=== PATIENT | female | born 1955 | race Caucasian/White ===

== ENCOUNTER 2016-10-01 05:08 | Inpatient (IN) | payer BC ==
[2016-09-15 11:06] VITALS: BMI 36.0
--- NOTE | 2016-09-15 11:44 | PAT Medication Instructions ---
Service Date Sep 15, 2016. Current Home Medication List Albuterol Sulfate (Proair Respiclick), 2 PUFFS INH Q4-6H Cholecalciferol (Vitamin D3), 1 CAP PO QAM Escitalopram Oxalate (Lexapro), 20 MG PO QPM Hydrocodone/Acetaminophen 5MG/325MG ([place] 5MG/325MG), 1-2 TAB PO Q4-6H PRN for Pain Lorazepam (Ativan), 0.5 MG PO TID PRN for PRN Montelukast Sodium (Singulair), 10 MG PO QPM Pantoprazole (Protonix), 40 MG PO QAM [Advair], 2 PUFFS INH BID Medication Instructions For Your Scheduled Surgery Patient to complete Levaquin 500mg QAM ~09/18/16. - Hold the following medications the morning of surgery: Cholecalciferol (Vitamin D3), 1 CAP PO QAM - Take the following medications the morning of surgery with a sip of water: [Advair], 2 PUFFS INH BID Pantoprazole (Protonix), 40 MG PO QAM Lorazepam (Ativan), 0.5 MG PO TID PRN for PRN (if needed) Hydrocodone/Acetaminophen 5MG/325MG ([place] 5MG/325MG), 1-2 TAB PO Q4-6H PRN for Pain (okay to take up to 4 hours prior to surgery if needed) Albuterol Sulfate (Proair Respiclick), 2 PUFFS INH Q4-6H (bring with you to hospital morning of surgery; use if needed) - Take the following medications as scheduled the night before surgery: [Advair], 2 PUFFS INH BID Montelukast Sodium (Singulair), 10 MG PO QPM Lorazepam (Ativan), 0.5 MG PO TID PRN for PRN (if needed) Hydrocodone/Acetaminophen 5MG/325MG ([place] 5MG/325MG), 1-2 TAB PO Q4-6H PRN for Pain (if needed) Escitalopram Oxalate (Lexapro), 20 MG PO QPM Albuterol Sulfate (Proair Respiclick), 2 PUFFS INH Q4-6H (if needed) If you have any questions please call us at [phone] or [phone] or [phone]
[2016-09-15 12:17] LABS: MANUAL MICROSCOPIC REQUIRED? NO; REVIEW REQ? NO; URINE APPEARANCE CLEAR (CLEAR); URINE BILIRUBIN NEG (NEG); URINE COLOR YELLOW; URINE NITRITE NEG (NEG); URINE PH 6.5 (4.5-7.5); URINE SPECIFIC GRAVITY 1.014 (1.000-1.030); UROBILINOGEN NEG (NEG)
--- NOTE | 2016-09-15 12:21 | DIAGNOSTIC IMAGING REPORT ---
CHEST PREADMISSION(PA/LAT) CLINICAL HISTORY: Preoperative chest COMPARISON STUDY: No previous studies for comparison. FINDINGS: The cardiac and mediastinal contours are normal. There is no evidence of focal pulmonary consolidation. There is no evidence of failure. No pleural effusions are visualized.[ There are minimal linear atelectatic changes at the left lung base. IMPRESSION: No active disease in the chest. Electronically signed by: Hakeem Mancia M.D. 09/15/2016 12:20 PM Dictated Date/Time: 09/15/2016 12:19 PM
[2016-09-15 12:26] LABS: INR 0.9 (0.9-1.1); PARTIAL THROMBOPLASTIN RATIO 0.9
[2016-09-15 13:00] LABS: ESTIMATED AVERAGE GLUCOSE 128 mg/dl; HA1C FLAG Normal (Normal)
--- NOTE | 2016-09-27 10:05 | HISTORY & PHYSICAL EXAMINATION ---
DATE OF ADMISSION: 10/01/2016 CHIEF COMPLAINT: Right knee pain. HISTORY OF PRESENT ILLNESS: The patient is a 61-year-old female, who presents with right knee pain. She states that the symptoms have been chronic and nontraumatic. She denies any injuries. The pain is described as aching, sharp and throbbing. She has difficulty performing her activities of daily living. She has failed with cortisone injections, nonsteroidal anti-inflammatories and physical therapy. She does like to proceed with a right total knee arthroplasty. PAST MEDICAL HISTORY: Significant for asthma, COPD, anxiety, shortness of breath with walking, osteoarthritis, GERD and hiatal hernia. PAST SURGICAL HISTORY: Cholecystectomy, appendectomy, right knee meniscal repair, lithotripsy, hysterectomy. SOCIAL HISTORY: She drinks alcohol socially, smokes 1-2 cigarettes a day. Denies IV or illegal drug use. She lives in a [address] house. 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 FAMILY HISTORY: Father has a history of stroke. ALLERGIES: TO PENICILLIN AND MOBIC. MEDICATIONS: 1. Lorazepam 0.5 mg p.r.n. 2. Singular 10 mg daily. 3. Nexium 40 mg daily. 4. Lexapro 20 mg daily. 5. Albuterol p.r.n. 6. Advair 230/21 mcg two puffs twice a day. 7. [place] 5-325 mg one to two tablets every 4-6 hours as needed for pain. REVIEW OF SYSTEMS: She denies headaches, fevers, chills, double vision, blurry vision, sore throat, cough, chest pain, nausea, vomiting, diarrhea, constipation, numbness, tingling, tired, difficulties going to the bathroom, thoughts to harm herself or harm others or depression. She is positive for joint pain and joint stiffness of the right knee. OBJECTIVE: GENERAL APPEARANCE: The patient is a 61-year-old female, sitting in no acute distress. She is well-dressed, well-nourished. She is awake, alert and oriented x3. VITAL SIGNS: She is 5 feet 5 inches tall, 215 pounds, blood pressure 110/68. HEENT: Extraocular movements are intact. PERRLA. Mucosa was moist. No septal deviation. NECK: Supple with no lymphadenopathy, no JVD, no thyromegaly. HEART: Regular rate and rhythm with no murmurs or gallops. LUNGS: Has mild wheezing and is diffuse throughout all lung areas. ABDOMEN: Soft, nontender, nondistended. Normal bowel sounds, no hepatosplenomegaly. EXTREMITIES: Paying particular attention to the right lower extremity, she is able to actively extend to 0 degrees and flex to 100 degrees. She has diffuse tenderness more so to the medial joint line. Ligaments are intact. NEUROLOGIC: Cranial nerves II-XII were intact. Pulses were compared bilaterally and were equal. IMAGING: X-rays of the right knee show a collapsed fragment of the lateral femoral condyle consistent with AVN. 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 PLAN: The patient is scheduled for a right total knee arthroplasty. She has had MRIs and x-rays that have demonstrated a subchondral collapse of the lateral femoral condyle with mild impaction of the articular surface about 2 mm that is consistent with spontaneous osteonecrosis. She has failed conservative therapies of cortisone injections, visco injections, nonsteroidal anti-inflammatories and physical therapy. Given the preexisting osteoarthritic change in the patellofemoral joint and collapse of the bone, it was discussed with the patient and are in agreement, is best served with a total knee arthroplasty. She will be scheduled for a right total knee arthroplasty. Risks and benefits were discussed with the patient and included, but not limited to infection, DVT, pain, stiffness, need for revision surgeries, damage to blood vessels, damage to nerves, PE, and anesthesia risks were all discussed with the patient and she wishes to proceed. All questions were answered to her satisfaction. DVT prophylaxis will be aspirin 81 mg twice a day. Discharge will be home with outpatient physical therapy. CELESTE
[2016-10-01] VITALS (7 sets, daily range): BP systolic 106–132; BP diastolic 59–80; PULSE 78–101; TEMP 36.9–37.3; O2SAT 94–96; Ht 165.1 cm; Wt 98.5 kg
[~2016-10-01] VITALS: Ht 165.1 cm; Wt 98.5 kg
[~2016-10-01 05:08] MED LIST: ADVAIR INH; ALBU18002 INH; CHOL2000 PO; ESCI1TAB10 PO; HYDR-5688 PO; LEVO-366 PO; LORA-741 PO; MONT1TAB3 PO; PANT40TA PO
[2016-10-01] MEDS ORDERED: ROPIVACAINE 5MG/ML 30 ML 150 MG, BUPIVACAINE/EPINEPHR 0.5% MPF 30 ML, KETOROLAC TROMETH... INFIL SCH ×7 (06:00)
[2016-10-01] MEDS ORDERED: METOCLOPRAMIDE HCL 10 MG TAB PO SCH (06:00)
[2016-10-01] MEDS ORDERED: ACETAMINOPHEN 500 MG TAB PO SCH (06:00)
[2016-10-01] MEDS ORDERED: LACTATED RINGER'S 1000ML 500 ML IV ONE (06:00)
[2016-10-01] MEDS ORDERED: CLINDAMYCIN 600 MG/54 ML D5W IV SCH (06:00)
[2016-10-01] MEDS ORDERED: GABAPENTIN 300 MG CAP PO SCH (06:00)
[2016-10-01] MEDS ORDERED: CeleBREX 200 MG CAP PO SCH (06:00)
[2016-10-01] MEDS ORDERED: LACTATED RINGER'S 1000ML 1,000 ML IV SCH ×2 (06:00)
[2016-10-01] MEDS ORDERED: DEXAMETHASONE 4 MG TAB PO SCH (06:00)
[2016-10-01] MEDS ORDERED: FAMOTIDINE 20 MG TAB PO SCH (06:00)
[2016-10-01] MEDS ORDERED: BUPIVACAINE/EPINEPHRINE 0.25% 1:200,000 30 ML VIAL ONE (06:35)
[2016-10-01] MEDS ORDERED: DEXAMETHASONE SOD INJ 4 MG/ML VIAL ONE (06:35)
[2016-10-01] MEDS ORDERED: BACITRACIN 50000 UNIT VIAL ONE (06:58)
[2016-10-01] MEDS ORDERED: POVIDONE-IODINE OP SOLN 30 ML BTL ONE (06:58)
[2016-10-01] MEDS ORDERED: ORTHO JOINT ANESTHETIC ONE (06:58)
--- NOTE | 2016-10-01 07:00 | History & Physical Bridge Note ---
H&P Re-Evaluation Bridge Note: I have examined the patient, reviewed the History & Physical and in the interval since the performance of the History & Physical I have noted the following changes of clinical significance: No changes noted
[2016-10-01] MEDS ORDERED: EpHEDrine SULFATE INJ 50 MG/ML AMP IV PRN (07:30)
[2016-10-01] MEDS ORDERED: ATROPINE SULFATE 0.1 MG/ML 5ML SYR IV PRN (07:30)
[2016-10-01] MEDS ORDERED: FENTANYL CITRATE INJ 50 MCG/1 ML 2 ML VIAL IV PRN (07:30)
[2016-10-01] MEDS ORDERED: ONDANSETRON INJ 2 MG/ML 2 ML VIAL IV PRN ×2 (07:30→09:00)
--- NOTE | 2016-10-01 08:45 | [facility] Post Operative Brief Note ---
Immediate Operative Summary Operative Date Oct 01, 2016. Pre-Operative Diagnosis Right Knee Degenerative Joint Disease with Osteonecrosis of the Lateral Femoral Condyle Post-Operative Diagnosis Right Knee Degenerative Joint Disease with Osteonecrosis of the Lateral Femoral Condyle Procedure(s) Performed Right Total Knee Arthroplasty Surgeon Dr. Pastrana Paralegal Assistant Surgeon(s) ALICJA Juarez Estimated Blood Loss 20 ml Findings above Specimens A. Right Knee Bone and Tissue Drains hemovac Anesthesia spinal Complication(s) None Disposition Recovery Room / PACU
[2016-10-01] MEDS ORDERED: PANTOprazole SOD 40 MG TAB PO SCH (09:00)
[2016-10-01] MEDS ORDERED: LORAZEPAM 0.5 MG TAB PO PRN (09:00)
[2016-10-01] MEDS ORDERED: ZOLPIDEM TARTRATE 5 MG TAB PO PRN (09:00)
[2016-10-01] MEDS ORDERED: MoRPHine SULFATE 2 MG/ML CARP IV PRN (09:00)
[2016-10-01] MEDS ORDERED: MAGNESIUM HYDROXIDE SUSP 30 ML UDC PO PRN (09:00)
[2016-10-01] MEDS ORDERED: ALUMINUM/MAGNESIUM/SIMETH (MAALOX MAX) 30 ML UDC PO PRN (09:00)
--- NOTE | 2016-10-01 09:32 | OPERATIVE REPORT ---
DATE OF OPERATION: 10/01/2016 PREOPERATIVE DIAGNOSES: Right knee osteonecrosis, right lateral femoral condyle and degenerative joint disease, right knee. POSTOPERATIVE DIAGNOSES: Same. PROCEDURE: Right total knee arthroplasty. SURGEON: Dr. Montez Pastrana. EQUIPMENT MANAGER: Simon Tom PA-C, who was necessary for assistance of procedure with positioning, prepping, draping, retraction and closure. ANESTHESIA: Spinal with adductor canal block. SPECIMEN: Bone and tissue. IMPLANTS: [employer] Journey version 2, femur 4, tibia 4, poly 9, and patella 29 oval. DRAINS: One medium Hemovac. COMPLICATIONS: None. ESTIMATED BLOOD LOSS: 20 mL. INDICATIONS: The patient is a 61-year-old female with progressive right knee pain. 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 She had some chondral collapse of the bone in this region. Failing conservative measures, she wished to proceed with the right total knee arthroplasty. She also had degenerative changes, particularly in the patellofemoral joint. So, I recommended a total knee replacement. The risks, benefits, and alternatives of surgery including, but not limited to infection, DVT, pain, stiffness, need for revision surgery, failure to relieve all symptoms, damage to blood vessels, damage to nerves, and risks of anesthesia were discussed with patient and she wished to proceed. DESCRIPTION OF PROCEDURE: The patient was identified, laterality was confirmed and marked. She received a preoperative antibiotic as well as a spinal and adductor canal block. A well-padded tourniquet was placed on the thigh and limb was prepped and draped in the usual sterile manner with ChloraPrep. Limb was exsanguinated and tourniquet was inflated. I made a longitudinal incision in the anterior aspect of the knee, sharply incising the skin utilizing Bovie electrocautery to achieve hemostasis. I made a medial parapatellar arthrotomy and mobilized the patella laterally. I removed the patellar fat pad and the anterior horns of the lateral and medial meniscus. I then pinned into place my patient matched distal femoral cutting guide. The region of her lateral condyle region had unstable fragment that was displaced upon flexing the knee and underlying necrotic bone. We made a distal femoral resection. We were able to get back into healthy bone on the region of the lateral femoral condyle. I pinned into place a 5-in-1 size-4 femoral cutting guide and made my anterior, posterior and chamfer cuts. I then removed the remaining portions of the meniscus and the cruciates. I then pinned in place the patient matched tibial cutting guide, made my tibial resection and then sized and pinned a size-[address], cutting for the post. I removed the posterior osteophytes off the femur and then, pinned into place the trial femoral component and reamed for the trochlea. I placed the trochlea into position. I then trialed a 9-mm poly and had good range of motion, good soft tissue balancing and tensioning with a 9-mm poly. I then prepared the patella with a freehand cut and then sized and drilled for a 29 oval patella. We had good tracking to the patella and no lateral release was needed. All the trial components were removed. Wound was thoroughly irrigated. Deep tissues were anesthetized with an ortho mix solution and then with Simplex HV with gent cement. I cemented the definitive components. This was a Romano [employer]hew Journey version 2, femur 4, tibia 4, poly 9, and patella 29 oval. Deep drain was placed. The arthrotomy was then closed with interrupted #1 Vicryl sutures, subcutaneous tissue with interrupted 2-0 Vicryl suture and skin with silas. Sterile dressing was applied. All needle and sponge counts were correct at the end of the procedure. The patient was transferred to the PACU in stable condition without apparent complication. I attest to the content of the Intraoperative Record and any orders documented therein. Any exception s are noted below.
--- NOTE | 2016-10-01 10:25 | Anesthesiology Progress Note ---
Anesthesia Post Op Note Date & Time Oct 01, 2016 at 10:25 Vital Signs Pain Intensity: 0 Vital Signs Past 12 Hours Date Time Temp Pulse Resp B/P (MAP) Pulse Ox O2 Delivery O2 Flow Rate FiO2 10/01/16 10:15 79 17 104/75 95 Nasal Cannula 2 10/01/16 10:05 79 12 120/78 94 Nasal Cannula 2 10/01/16 09:55 81 11 133/85 95 Nasal Cannula 2 10/01/16 09:45 82 13 98/71 97 Nasal Cannula 2 10/01/16 09:35 82 19 103/65 99 Mask 10 10/01/16 09:25 88 12 103/47 99 Mask 10 10/01/16 09:19 36.1 86 16 101/76 96 Mask 10 10/01/16 06:02 37.1 82 18 111/74 95 Room Air Notes Mental Status: alert / awake / arousable, participated in evaluation Pt Amnestic to Procedure: Yes Nausea / Vomiting: adequately controlled Pain: adequately controlled Airway Patency, RR, SpO2: stable & adequate BP & HR: stable & adequate Hydration State: stable & adequate Neuraxial Anesthesia: was administered, sensory block is resolving Anesthetic Complications: no major complications apparent
--- NOTE | 2016-10-01 10:41 | DIAGNOSTIC IMAGING REPORT ---
RIGHT KNEE 1 OR 2 VIEWS ROUTINE CLINICAL HISTORY: Degenerative arthritis. POSTOP STUDY COMPARISON: None. DISCUSSION: There are postsurgical changes of a total right knee arthroplasty and patellar resurfacing. The femoral and tibial components appear well seated. Overlying skin silas and surgical drains are evident. There is air within the soft tissues consistent with recent surgery. IMPRESSION: Postsurgical changes of a total right knee arthroplasty. Electronically signed by: Hakeem Mancia M.D. 10/01/2016 10:39 AM Dictated Date/Time: 10/01/2016 10:39 AM
[2016-10-01] MEDS: TRANEXAMIC ACID INJ 1,000 MG in SODIUM CHLORIDE 0.9% 100ML 100 ML IV SCH (10:51)
[2016-10-01] MEDS: DOCUSATE SODIUM 100 MG CAP PO SCH ×2 (11:46→21:19)
[2016-10-01] MEDS: MULTIVITAMIN TAB PO SCH (11:46)
[2016-10-01] MEDS: PANTOprazole SOD 40 MG TAB PO SCH (11:47)
[2016-10-01] MEDS: CHOLECALCIFEROL 1000 INTER.UNIT TAB PO SCH (11:47)
[2016-10-01] MEDS: FERROUS GLUCONATE 324 MG TAB PO SCH ×2 (12:52→18:13)
[2016-10-01] MEDS: ALBUTEROL HFA INHALER 8.5 GM INH SCH ×3 (12:52→19:41)
[2016-10-01] MEDS: D5W AND 1/2NSS + 20MEQ KCL 1,000 ML IV SCH ×2 (12:53→21:57)
[2016-10-01] MEDS: ACETAMINOPHEN 500 MG TAB PO SCH ×2 (13:39→21:57)
[2016-10-01] MEDS: CLINDAMYCIN IV 600 MG in DEXTROSE 5% 50ML 50 ML IV SCH (15:35)
[2016-10-01] MEDS: OXYCODONE HCL IR 5 MG TAB (IMMEDIATE RELEASE) PO PRN ×2 (15:49→19:42)
--- NOTE | 2016-10-01 20:46 | Discharge Instructions ---
Discharge Instructions Date of Service Oct 01, 2016. Admission Reason for Admission: Unilateral Primary Osteoarthritis, Right Knee Discharge Discharge Diagnosis / Problem: S/P Right TKA Discharge Goals Goal(s): Decrease discomfort, Improve function Activity Recommendations Activity Limitations: per Instructions/Follow-up section . Instructions / Follow-Up Instructions / Follow-Up ACTIVITY RECOMMENDATIONS: SELF CARE INSTRUCTIONS AFTER TOTAL KNEE REPLACEMENT A. You may need to continue a physical therapy program after discharge from the hospital. There are several options available to you. Your doctor will assist you in selecting the best one for you. 1. An out-patient facility 2 to 3 times a week for therapy or home therapy. 2. Continue working on all exercises taught to you in the hospital. Your goals should be to increase bending of your knee to 90 degrees and beyond and to fully straighten your knee. B. You may progress at your own pace from walking with a walker or crutches to a cane; then to no assistive devices. C. Make walking a part of your daily routine. Be up as much as comfortable with rest periods throughout the day. Rest with leg elevation is very important. Use the ice wrap frequently for the first 3-4 weeks. D. There are no restrictions on activities. 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 E. Wear the long elastic stockings (CELY hose) 20 hours a day for 2 weeks after surgery. They can be removed several times a day for laundering and for a bath. F. You may shower, no tub baths until cleared by your doctor. G. YOU WILL HAVE A SILVERLON DRESSING ON. IT CAN BE REMOVED IN 7 DAYS. YOU MAY THEN APPLY DRY DRESSINGS. SPECIAL CARE INSTRUCTIONS: VERY IMPORTANT TO READ AND REVIEW A. There are a few signs you need to watch for after you are home. Call [facility] if you notice any of the followin. Increased severe knee pain. Some pain is expected especially when you exercise. 2. Increased swelling in your leg or knee; pain or swelling of the calf muscle in either lower leg. 3. Any fluid drainage from the incision. 4. Shortness of breath or chest pain. B. Please call [facility] at if you have any concerns or questions about your operation or recovery. The doctor or his nurse will return your call promptly. C. You must take antibiotics before dental work, bladder, bowel or other surgery. Your doctor will provide you with a permanent care to carry describing this precaution. IMPORTANT: * REMEMBER TO TAKE ASPIRIN, 81 MG, TWICE DAILY FOR 4 WEEKS UNLESS OTHERWISE DIRECTED. THIS IS YOUR BLOOD THINNER. * HIGH RISK PATIENTS MAY BE PRESCRIBED A STRONGER BLOOD THINNER. THIS WILL BE PROVIDED AT DISCHARGE. * CALL IF INCREASED PAIN, REDNESS, DRAINAGE OR FEVER GREATER THAT 101. * WEAR CELY HOSE 20 HOURS PER DAY FOR 2 WEEKS. * YOU MAY HAVE A LARGE BAND-AID LIKE DRESSING (SILVERON). THIS WILL REMAIN ON YOUR INCISION FOR 7 DAYS, THEN CAN BE REMOVED. IF INCISION IS LEAKING THROUGH DRESSING, CALL THE OFFICE . FOLLOW UP VISIT: If appointment is not already scheduled: Please call [facility] to make a follow-up appointment for 2 weeks after your surgery at . Current Hospital Diet Patient's current hospital diet: Regular Diet Discharge Diet Recommended Diet: Regular Diet Procedures Procedures Performed: Right Total Knee Arthroplasty Pending Studies Studies pending at discharge: no Laboratory Results Hemoglobin A1c Test 09/15/16 11:51 Range/Units Estimated Average Glucose 128 mg/dl Hemoglobin A1c 6.1 H 4.5-5.6 % Medical Emergencies . Who to Call and When: Medical Emergencies: If at any time you feel your situation is an emergency, please call [phone] immediately. . Non-Emergent Contact Non-Emergency issues call your: Surgeon Call Non-Emergent contact if: temperature is above 101.5, your pain is worsening, wound has increased drainage, wound has increased redness . "Provider Documentation" section prepared by Simon Tom. . VTE Core Measure Inpt VTE Proph given/why not?: Other Anticoagulation (aspirin 81mg BID) [place] Drug Monitoring Program Search Results: patient reviewed within database, no issues identified
[2016-10-01] MEDS: OXYCODONE HCL 10 MG TABCR (OXYCONTIN) PO SCH (21:17)
[2016-10-01] MEDS: ESCITALOPRAM OXALATE 20 MG TAB PO SCH (21:18)
[2016-10-01] MEDS: MONTELUKAST SOD 10 MG TAB PO SCH (21:18)
[2016-10-01] MEDS: ASPIRIN 81 MG ECTAB PO SCH (21:19)
[2016-10-02 00:09] VITALS: BP 92/60; PULSE 64; TEMP 36.8; O2SAT 94
[2016-10-02] MEDS: CLINDAMYCIN IV 600 MG in DEXTROSE 5% 50ML 50 ML IV SCH ×2 (00:13→07:39)
[2016-10-02] MEDS: ALBUTEROL HFA INHALER 8.5 GM INH SCH ×6 (00:14→21:22)
[2016-10-02] MEDS: OXYCODONE HCL IR 5 MG TAB (IMMEDIATE RELEASE) PO PRN ×5 (00:15→19:28)
[2016-10-02 03:45] VITALS: BP 91/51; PULSE 77; TEMP 36.7; O2SAT 94
[2016-10-02] MEDS: ACETAMINOPHEN 500 MG TAB PO SCH ×3 (05:39→21:25)
[2016-10-02 06:08] LABS: HEMATOCRIT 34.6 % (37-47); MEAN CELL VOLUME 96.6 fL (80-100); MEAN CORPUSCULAR HEMOGLOBIN 31.8 pg (25-34); MEAN CORPUSCULAR HGB CONC 32.9 g/dl (32-36); MEAN PLATELET VOLUME 11.3 fL (7.4-10.4); PLATELET COUNT 188 K/uL (130-400); RED BLOOD COUNT 3.58 M/uL (4.2-5.4); WHITE BLOOD COUNT 10.42 K/uL (4.8-10.8)
[2016-10-02 06:40] LABS: CALCIUM 9.3 mg/dl (8.5-10.1); CREATININE 1.1 mg/dl (0.60-1.20); POTASSIUM 4.8 mmol/L (3.5-5.1)
[2016-10-02 06:47] LABS: BUN/CREATININE RATIO 14.5 (10-20)
[2016-10-02 07:00] VITALS: BP 101/65; PULSE 75; TEMP 36.8; O2SAT 95
[2016-10-02] MEDS ORDERED: DEXAMETHASONE 4 MG TAB PO SCH (07:30)
[2016-10-02] MEDS: D5W AND 1/2NSS + 20MEQ KCL 1,000 ML IV SCH (07:38)
[2016-10-02] MEDS: DOCUSATE SODIUM 100 MG CAP PO SCH ×2 (08:59→21:25)
[2016-10-02] MEDS: MULTIVITAMIN TAB PO SCH (08:59)
[2016-10-02] MEDS: CHOLECALCIFEROL 1000 INTER.UNIT TAB PO SCH (09:00)
[2016-10-02] MEDS: ASPIRIN 81 MG ECTAB PO SCH ×2 (09:00→21:25)
[2016-10-02] MEDS: PANTOprazole SOD 40 MG TAB PO SCH (09:01)
[2016-10-02] MEDS: FERROUS GLUCONATE 324 MG TAB PO SCH ×3 (09:02→19:26)
[2016-10-02] MEDS: OXYCODONE HCL 10 MG TABCR (OXYCONTIN) PO SCH ×2 (09:07→21:25)
--- NOTE | 2016-10-02 11:34 | Orthopedic Progress Note ---
Orthopedic Progress Note Date of Service Oct 02, 2016. Subjective Post OP Day: 1 Reports: feeling well, pain controlled w PO medications (Pain was bad this AM but has improved with pain meds.), Denies: complaints, chest pain, SOB, nausea / vomiting, light headedness, calf pain Objective calves soft nontender, N/V intact, capillary refill less than 2 sec., dressing C /D/I, A&O x3, toes mobile, hemovac drainage (200 cc total) Date Time Temp Pulse Resp B/P (MAP) Pulse Ox O2 Delivery O2 Flow Rate FiO2 10/02/16 07:00 36.8 75 16 101/65 (77) 95 Room Air 10/02/16 03:45 36.7 77 16 91/51 (64) 94 Room Air 10/02/16 00:09 36.8 64 16 92/60 (71) 94 Room Air 10/02/16 00:03 Room Air 10/01/16 18:45 37.3 84 18 106/59 (75) 95 Room Air 10/01/16 15:40 Room Air 10/01/16 15:35 36.9 101 18 122/71 (88) 96 Room Air 10/01/16 13:00 85 16 118/80 (93) 94 Nasal Cannula 2.0 10/01/16 12:00 84 18 118/80 (93) 95 Nasal Cannula 2.0 Laboratory Results 24 Hours: Test 10/02/16 05:40 Hematocrit 34.6 % Hemoglobin 11.4 g/dL Assessment & Plan Assessment: POD #1 s/p right TKA Inhouse Planning Pain Management: Oxycontin, PO Tylenol, Oxy IR DVT Prophylaxis: CELYs, ASA Discharge Planning Discharge Planning: home Pain Management: Oxycontin, PO Tylenol, Oxy IR DVT Prophylaxis: TEDs, ASA
[2016-10-02 15:02] VITALS: BP 121/72; PULSE 80; TEMP 36.7; O2SAT 94
[2016-10-02] MEDS: MONTELUKAST SOD 10 MG TAB PO SCH (21:25)
[2016-10-02] MEDS: ESCITALOPRAM OXALATE 20 MG TAB PO SCH (21:25)
[2016-10-02 23:10] VITALS: BP 122/64; PULSE 74; TEMP 36.6; O2SAT 93
[2016-10-03] MEDS: ALBUTEROL HFA INHALER 8.5 GM INH SCH ×3 (00:04→07:41)
[2016-10-03] MEDS: OXYCODONE HCL IR 5 MG TAB (IMMEDIATE RELEASE) PO PRN ×3 (00:05→10:48)
[2016-10-03] MEDS: ACETAMINOPHEN 500 MG TAB PO SCH ×2 (06:27→12:18)
[2016-10-03 07:06] VITALS: BP_SYST 116; BP_SYST 145; BP_DIAS 56; BP_DIAS 71; PULSE 64; PULSE 76; TEMP 36.7; TEMP 36.8; O2SAT 95
[2016-10-03] MEDS: OXYCODONE HCL 10 MG TABCR (OXYCONTIN) PO SCH (07:41)
[2016-10-03] MEDS: ASPIRIN 81 MG ECTAB PO SCH (07:42)
[2016-10-03] MEDS: DOCUSATE SODIUM 100 MG CAP PO SCH (07:42)
[2016-10-03] MEDS: FERROUS GLUCONATE 324 MG TAB PO SCH (07:42)
[2016-10-03] MEDS: PANTOprazole SOD 40 MG TAB PO SCH (07:43)
[2016-10-03] MEDS: MULTIVITAMIN TAB PO SCH (07:44)
--- NOTE | 2016-10-03 08:10 | Orthopedic Progress Note ---
Orthopedic Progress Note Date of Service Oct 03, 2016. Subjective Post OP Day: 2 Reports: feeling well, pain controlled w PO medications, Denies: complaints, chest pain, SOB, nausea / vomiting, light headedness, calf pain Objective calves soft nontender, N/V intact, capillary refill less than 2 sec., dressing C /D/I, A&O x3, toes mobile Date Time Temp Pulse Resp B/P (MAP) Pulse Ox O2 Delivery O2 Flow Rate FiO2 10/03/16 07:06 36.8 64 16 116/71 (86) 95 Room Air 10/03/16 07:06 36.7 76 16 145/56 (85) 95 Room Air 10/02/16 23:55 Room Air 10/02/16 23:10 36.6 74 18 122/64 (83) 93 Room Air 10/02/16 15:30 Room Air 10/02/16 15:02 36.7 80 16 121/72 (88) 94 Room Air Assessment & Plan Assessment: POD #2 s/p right TKA Inhouse Planning Pain Management: Oxycontin, PO Tylenol, Oxy IR DVT Prophylaxis: [place] ASA Discharge Planning Discharge Planning: home Pain Management: Oxycontin, PO Tylenol, Oxy IR DVT Prophylaxis: CELYs ASA
[2016-10-03] MEDS ORDERED: OXYSR10 PO (08:11)
[2016-10-03] MEDS ORDERED: ASPEC81 PO (08:11)
[2016-10-03] MEDS ORDERED: ONDA8TAB6 PO (08:11)
[2016-10-03] MEDS ORDERED: ACET-24 PO (08:11)
[2016-10-03] MEDS ORDERED: RXC5 PO (08:11)
[2016-10-03 11:09] VITALS: BP 116/71; PULSE 64; TEMP 36.8; O2SAT 95
--- NOTE | 2016-10-10 16:40 | Discharge Summary ---
Orthopedic Discharge Summary Admission Date/Reason Oct 01, 2016 at 08:56 Unilateral Primary Osteoarthritis, Right Knee. Discharge Date/Disposition Oct 03, 2016 Home Diagnosis Principal Diagnosis: Primary osteoarthritis of right knee Procedure(s) Performed On October 01 2016, Patient underwent a Right total knee arthroplasty. Consultations None Medication Reconciliation Please refer to the electronic Patient Visit Report (Discharge Instructions) for additional information. Admission Physical Exam As per Admitting History & Physical. Hospital Course On October 01 2016 patient underwent a Right TKA. She tolerated the procedure well. POD#1 She stated the pain was bad this AM but has improved with pain medication. Her dressing was Clean, dry and intact. She would be scheduled to go home the next day with out patient PT. POD# 2 pain was controlled with PO medication. her dressing was clean,dry and intact. She will be scheduled to go home with out patient PT today. Discharge Instructions Please refer to the electronic Patient Visit Report (Discharge Instructions) for additional information.
== END 2016-10-03 13:43 | disposition home or self-care (01) | DRG 470 ==
LOC: C.ACU 05:08 → C.MSN 08:56 → ENRESERV 10:33
PROVIDERS: ADMIT Orthopaedic Surgery; ATTEND Orthopaedic Surgery
PROC: 0SRC0J9 Replacement of Right Knee Joint with Synthetic Substitute, Cemented, Open Approach (ICD-10-PCS; principal; 2016-10-01 07:15)
DX: M17.11 Unilateral primary osteoarthritis, right knee (principal); M87.051 Idiopathic aseptic necrosis of right femur; J44.9 Chronic obstructive pulmonary disease, unspecified; F41.9 Anxiety disorder, unspecified; K21.9 Gastro-esophageal reflux disease without esophagitis; Z79.899 Other long term (current) drug therapy

== ENCOUNTER → 2016-10-22 | Outpatient (CLI) | payer BC ==
[~2016-10-22] MED LIST changes: +ACET-24 PO; +ASPEC81 PO; +DAPT500I IV; -HYDR-5688 PO; -LEVO-366 PO; +ONDA8TAB6 PO; +OXYSR10 PO; +RXC5 PO
== END | disposition home or self-care (01) ==
LOC: C.LAB 15:15
PROVIDERS: ATTEND Physician Assistant
DX: T81.30XA Disruption of wound, unspecified, initial encounter (principal); X58.XXXA Exposure to other specified factors, initial encounter

== ENCOUNTER 2016-11-22 15:09 | Inpatient (IN) | payer BC ==
[~2016-11-22] VITALS: Ht 165.1 cm; Wt 98.5 kg
[2016-11-22] VITALS (7 sets, daily range): BP systolic 104–130; BP diastolic 68–82; PULSE 78–89; TEMP 36.5–37.6; O2SAT 94–97; Ht 165.1 cm; Wt 98.5 kg
[~2016-11-22 15:09] MED LIST changes: -DAPT500I IV
[2016-11-22] MEDS ORDERED: EpHEDrine SULFATE INJ 50 MG/ML AMP IV PRN (16:30)
[2016-11-22] MEDS ORDERED: MoRPHine SULFATE 10 MG/ML CARP/VIAL IV PRN (16:30)
[2016-11-22] MEDS ORDERED: ATROPINE SULFATE 0.1 MG/ML 5ML SYR IV PRN (16:30)
[2016-11-22] MEDS ORDERED: ABHR TOP PRN (16:30)
[2016-11-22] MEDS ORDERED: ONDANSETRON INJ 2 MG/ML 2 ML VIAL IV PRN ×2 (16:30→20:30)
[2016-11-22] MEDS ORDERED: FENTANYL CITRATE INJ 50 MCG/1 ML 2 ML VIAL ONE ×4 (17:09→20:46)
[2016-11-22] MEDS ORDERED: MIDAZOLAM HCL 1 MG/ML 2ML VIAL ONE (17:09)
[2016-11-22] MEDS ORDERED: VANCOMYCIN 1GM/270ML NSS ONE (17:11)
[2016-11-22] MEDS ORDERED: NURSING VERBAL MED ORDER ONE ×2 (17:15→17:30)
[2016-11-22] MEDS ORDERED: POVIDONE-IODINE OP SOLN 30 ML BTL ONE (17:17)
[2016-11-22] MEDS ORDERED: BACITRACIN 50000 UNIT VIAL ONE ×2 (17:17→18:31)
--- NOTE | 2016-11-22 17:23 | History and Physical ---
History & Physical Date Nov 22, 2016. Chief Complaint Right knee pain and drainage History of Present Illness The patient is a 61 year old female who under went R TKA. The distal aspect of her incision was slow to heal. No erythema, no purulent drainage, some mild serous drainage. She was doing wet to dry dressing changes. The wound was improving but slowly. She was referred to wound management and the performed aggressive wound debridement. A wound culture was done per wound clinic. She was re-evaluated after this debridement and wound was still benign. This weekend she had increasing pain, erythema and the drainage become purulent. She was seen at [facility] where she was given IV abx and a script for po Bactrim. In the office today wound is now red with purulent drainage for distal non-healing wound. Aspiration in the office only showed small amount of old blood. No fevers or chills. Past Medical/Surgical History Medical Problems: (1) Degenerative joint disease of knee (2) Osteochondritis dissecans Allergies Coded Allergies: Dust (Verified Allergy, Unknown, DUST POLLEN SNEEZING-EYES WATER, 10/01/16) Green Sanders (Verified Allergy, Unknown, UNKNOWN, 10/01/16) Meloxicam (Verified Allergy, Unknown, FACIAL SWELLING, 10/01/16) Penicillins (Verified Allergy, Unknown, PASS OUT,HIVES, 10/01/16) Home Medications Scheduled Acetaminophen (Sb Non-Aspirin Extra Stre), 1,000 MG PO Q8H Albuterol Sulfate (Proair Respiclick), 2 PUFFS INH Q4-6H Aspirin (Aspirin EC Low Dose), 81 MG PO BID Cholecalciferol (Vitamin D3), 2 CAP PO QAM Escitalopram Oxalate (Lexapro), 20 MG PO QPM Montelukast Sodium (Singulair), 10 MG PO QPM Oxycodone HCl (Oxycontin), 10 MG PO Q12 Pantoprazole (Protonix), 40 MG PO QAM [Advair], 2 PUFFS INH BID Scheduled PRN Lorazepam (Ativan), 0.5 MG PO TID PRN for PRN Ondansetron Hcl (Zofran), 8 MG PO Q8 PRN for Nausea Oxycodone HCl (Oxycodone HCl), 5-10 MG PO Q4H PRN for Pain Physical Examination Skin: warm/dry, no rash Eyes: normal inspection, EOMI, sclerae normal ENT: normal ENT inspection, pharynx normal Head: normocephalic, atraumatic Neck: supple, no adenopathy, trachea midline Respiratory/Chest: lungs clear, normal breath sounds, no respiratory distress Cardiovascular: regular rate, rhythm, no edema, no murmur Abdomen / GI: normal bowel sounds, non tender Back: normal inspection Extremities: normal range of motion, + pertinent finding (erythema anteriorly, purulent drainage from distal aspect of incision, rest of the wound is well healed. No significant effusion) Neurologic/Psych: no motor/sensory deficits, alert, normal reflexes, oriented x 3 Diagnosis R knee cellulitis, possible deep infection Plan of Treatment She had been doing well post op except for a distal area of her incision which was slow to heal. No signs or symptoms of infection. She was on wet to dry dressing changes and was referred to wound management. They performed aggressive debridement and took wound culture. She was seen last week and the wound looked benign. This weekend she had increasing pain, redness and drainage. Was seen at [place] [facility] and given IV abx and told to f/u. She was seen today and wound had significantly worsened from previous. Aspiration in the office was only a little bit of old blood. The plan is for I&D of the wound. If the wound goes deep into the joint then I will perform polyexchange as well. risk, benefits and alternatives were discussed and she wishes to proceed.
[2016-11-22] MEDS ORDERED: D5W AND 1/2NSS + 20MEQ KCL 1000 ML IV SCH (17:30)
[2016-11-22] MEDS ORDERED: MoRPHine SULFATE 2 MG/ML CARP IV PRN (17:30)
[2016-11-22 17:44] LABS: HEMATOCRIT 34.7 % (37-47); MEAN CELL VOLUME 98.6 fL (80-100); MEAN PLATELET VOLUME 10.6 fL (7.4-10.4); PLATELET COUNT 221 K/uL (130-400); RED BLOOD COUNT 3.52 M/uL (4.2-5.4); WHITE BLOOD COUNT 7.04 K/uL (4.8-10.8)
[2016-11-22] MEDS ORDERED: BUPIVACAINE 0.5 % 5 MG/1 ML MPF 30ML VIAL ONE (17:49)
[2016-11-22 18:00] LABS: PARTIAL THROMBOPLASTIN RATIO 1.2; PROTHROMBIN TIME (PATIENT) 10.7 SECONDS (9.0-12.0)
[2016-11-22] MEDS ORDERED: ROPIVACAINE 5MG/ML 30 ML 150 MG, BUPIVACAINE/EPINEPHR 0.5% MPF 30 ML, KETOROLAC TROMETH... INFIL SCH ×7 (18:00)
[2016-11-22 18:01] LABS: MEAN CORPUSCULAR HGB CONC 31.4 g/dl (32-36)
[2016-11-22] MEDS ORDERED: PROPOFOL IV EMULSION 10 MG/ML 20 ML VIAL IV ONE (18:04)
[2016-11-22] MEDS ORDERED: DEXAMETHASONE SOD INJ 4 MG/ML VIAL ONE (18:05)
[2016-11-22] MEDS ORDERED: LIDOCAINE HCL 2% 2 ML VIAL (20MG/ML) ONE (18:05)
[2016-11-22] MEDS ORDERED: ONDANSETRON INJ 2 MG/ML 2 ML VIAL ONE (18:05)
[2016-11-22] MEDS ORDERED: HYDROmorphone INJ 2 MG/ML SYR/VIAL ONE (18:50)
[2016-11-22] MEDS: FENTANYL CITRATE INJ 50 MCG/1 ML 2 ML VIAL IV PRN ×4 (20:20→20:51)
--- NOTE | 2016-11-22 20:29 | [facility] Operative Report ---
Operative Report Operative Date Nov 22, 2016. Pre-Operative Diagnosis postoperative infection of right knee Post-Operative Diagnosis Postoperative infection of right knee Procedure(s) Performed right knee irrigation and debridment, poly exchange Surgeon Dr. Montez Pastrana Glass Decorator Surgeon(s) none Estimated Blood Loss 100ml Findings Deep infection down to the prosthesis with purulent material both distally as well as in the suprapatellar pouch Specimens #1 micro:Right distal knee sinovial-gram stain, anaerobic, culture and sensitivity #2 micro:Right proximal knee sinovial-gram stain, anaerobic, culture and sensitivity A: Supra Patella Path B: Explanted hardware Drains 2 Hemovac Anesthesia Gen. Complication(s) None Disposition Recovery Room / PACU Indications 61-year-old female who previously undergone a right total knee arthroplasty. Initially her wound is healing well. Her silas were removed. Approximately week to week and a half post staple removal portion of her incision distally opened a little bit. She placed on prophylactic Bactrim. Wound remained relatively benign without any purulent drainage or surrounding erythema. She was treated with wet-to-dry dressing changes. She continued to have some mild serous drainage but no purulent drainage nor erythema. She was subsequently referred to the wound clinic where debridement was performed and a wound culture obtained. We reevaluated her after the treatment by the wound clinic and last week the wound looked relatively benign. She had increasing pain and swelling redness and drainage turned purulent. She was seen at the [place] emergency room on Tuesday where she was given IV antibiotics as well as prescription for by mouth Bactrim. I evaluated her in the office on Tuesday and she has significant erythema and the anterior aspect of the knee purulent drainage from the distal aspect incision. We elected to proceed with irrigation and debridement of the wound exploration and possible polyethylene exchange if the wound tracked deeply. Risk benefits alternatives to the procedure including not limited to pain and stiffness need for revision procedure, failure to clear the infection, damage to blood vessels, damage to nerves, DVT were discussed with the patient and she wishes to proceed Description of Procedure Patient was identified in the laterality was confirmed and marked. She received an antibiotic after cultures were obtained. A well-padded tourniquet was applied and then the limb was prepped and draped in standard manner with Betadine. The limb was exsanguinated with gravity and the tourniquet was inflated. The open area measured about 1 cm x 1 cm over the distal aspect incision. I reopened a portion of the incision proximally and extended a little bit distally. There was purulent drainage from this region. The area tracked up proximally and I could feel by finger drop into the knee joint. I therefore reopen the entirety of the incision. There was significant purulent material distally around the region of the open wound, there was also purulent material in the suprapatellar pouch. A large portion of the arthrotomy had failed. I took several deep cultures both with Q-tips as well as tissue for culture. I then performed a sharp debridement down to the level of the periosteum of the bone. I excised the skin edges along the region that it previously open. Also sharply abbreviated Within the joint as well as use a combination of curette rongeur and the versa jet to get good debridement of the tissues. I then removed her polyethylene with a curved osteotome and debrided the posterior capsule and the same fashion. I then thoroughly irrigated the wound with a total 9 L of bacitracin fluid. Betadine soak was also performed. We then changed gloves and gown and placed new drapes on the field. I trialed and she previously had a 9 mm poly-this felt a little loose so I upsized to a 4 x 10 mm poly-. I'm impacted the polyethylene place. There was good range of motion and soft tissue balancing and good tracking to the patella. A Betadine soak was performed was again performed A deep drain was placed. The arthrotomy was closed with interrupted #1 Vicryl suture subcutaneous tissue was closed with interrupted 2-0 Vicryl suture and skin with interrupted nylon. A Prevena wound VAC was placed and the tourniquet was released. All needle and sponge counts were correct at the end of the procedure patient was transferred to the PACU in stable condition without apparent complication. I attest to the content of the Intraoperative Record and any orders documented therein. Any exceptions are noted below.
[2016-11-22] MEDS ORDERED: ALUMINUM/MAGNESIUM/SIMETH (MAALOX MAX) 30 ML UDC PO PRN (20:30)
[2016-11-22] MEDS ORDERED: DiphenhydrAMINE HCL 50 MG/ML VIAL IV PRN (20:30)
[2016-11-22] MEDS ORDERED: LORAZEPAM 0.5 MG TAB PO PRN (20:30)
[2016-11-22] MEDS ORDERED: ZOLPIDEM TARTRATE 5 MG TAB PO PRN (20:30)
[2016-11-22] MEDS ORDERED: ONDANSETRON 8 MG TAB PO PRN (20:30)
[2016-11-22] MEDS ORDERED: VANCOMYCIN INJ 1,000 MG in SODIUM CHLORIDE 0.9% 250ML 250 ML IV SCH (20:30)
[2016-11-22] MEDS ORDERED: MAGNESIUM HYDROXIDE SUSP 30 ML UDC PO PRN (20:30)
--- NOTE | 2016-11-22 20:33 | Anesthesiology Progress Note ---
Anesthesia Post Op Note Date & Time Nov 22, 2016 at 20:33 Vital Signs Pain Intensity: 5.0 Vital Signs Past 12 Hours Date Time Temp Pulse Resp B/P (MAP) Pulse Ox O2 Delivery O2 Flow Rate FiO2 11/22/16 19:35 95 Room Air 11/22/16 16:15 37.6 81 18 104/68 (80) 95 Room Air 11/22/16 16:05 37.6 18 104/68 Notes Mental Status: alert / awake / arousable, participated in evaluation Pt Amnestic to Procedure: Yes Nausea / Vomiting: adequately controlled Pain: adequately controlled Airway Patency, RR, SpO2: stable & adequate BP & HR: stable & adequate Hydration State: stable & adequate Anesthetic Complications: no major complications apparent
[2016-11-22] MEDS ORDERED: VANCOMYCIN CONSULT ACTIVE PRN (20:45)
[2016-11-22] MEDS ORDERED: PATIENT'S HEIGHT AND/OR WEIGHT NEEDED SCH (20:45)
[2016-11-22] MEDS ORDERED: ALBUTEROL HFA 8 GM INHALER INH PRN (20:45)
[2016-11-22] MEDS ORDERED: ASPIRIN 81 MG ECTAB PO SCH (21:00)
--- NOTE | 2016-11-22 21:07 | DIAGNOSTIC IMAGING REPORT ---
RIGHT KNEE 1 OR 2 VIEWS ROUTINE CLINICAL HISTORY: Postoperative examination COMPARISON: 10/01/2016 DISCUSSION: There are postsurgical changes of a total right knee arthroplasty and patellar resurfacing. There is air within the soft tissues. Underlying surgical drains are evident. There is soft tissue swelling. No acute fractures or dislocations are visualized. IMPRESSION: Postsurgical change. No acute fractures or dislocations are visualized. Electronically signed by: Hakeem Mancia M.D. 11/22/2016 9:06 PM Dictated Date/Time: 11/22/2016 9:04 PM
[2016-11-22] MEDS: D5W AND 1/2NSS + 20MEQ KCL 1,000 ML IV SCH (21:31)
[2016-11-22] MEDS ORDERED: VANCOMYCIN INJ 1,500 MG in SODIUM CHLORIDE 0.9% 500ML 500 ML IV ONE (22:00)
[2016-11-22] MEDS ORDERED: MoRPHine SULFATE 2 MG/ML CARP IV STA (22:31)
[2016-11-22] MEDS: ASPIRIN 81 MG ECTAB PO SCH (22:32)
[2016-11-22] MEDS: ESCITALOPRAM OXALATE 20 MG TAB PO SCH (22:33)
[2016-11-22] MEDS: MONTELUKAST SOD 10 MG TAB PO SCH (22:33)
[2016-11-22] MEDS: ACETAMINOPHEN 500 MG TAB PO SCH (22:34)
[2016-11-22] MEDS: OXYCODONE HCL 10 MG TABCR (OXYCONTIN) PO SCH (22:35)
[2016-11-22] MEDS: OXYCODONE HCL IR 5 MG TAB (IMMEDIATE RELEASE) PO PRN (22:35)
[2016-11-23 00:20] VITALS: BP 115/74; PULSE 78; TEMP 36.6; O2SAT 97
[2016-11-23] MEDS: MoRPHine SULFATE 2 MG/ML CARP IV PRN ×5 (00:59→21:01)
--- NOTE | 2016-11-23 01:15 | CONSULTATION REPORT ---
DATE OF CONSULTATION: 11/22/2016 PRIMARY CARE PHYSICIAN: Dr. Huff from [place]. CONSULT REQUESTED BY: Dr. Pastrana for medical management following right knee irrigation and debridement with poly exchange placement. HISTORY OF PRESENT COMPLAINT: She is a 61-year-old female with a significant past medical history, including asthma/COPD, anxiety, osteoarthritis and GERD with hiatal hernia. Apparently, underwent a right total knee replacement in September of this year. The postoperative complication was some minor infection involving the skin of the right knee incision area. Over time, that did not improve and she was seen in the wound care clinic and on 22 of October the drainage fluid grew staph aureus that was sensitive to most of the antibiotics. She was getting outpatient treatment, but as I mentioned earlier, the condition did not improve, with more swelling, pain and redness involving the right knee joint. She was seen in the ER the day before yesterday, before admission and at that time, an IV antibiotic was given and orthopedics was consulted for probable wound infection in the joint. She underwent a right knee irrigation and debridement with poly exchange today, by Dr. Pastrana and medical consultation was requested for medical management from here. She denies to have any chest pain, any shortness of breath, any wheezing, any palpitation, any fever, chills or rigors, any abdominal pain, nausea and/or vomiting. She does have pain in the right knee joint, but denies any numbness or tingling in the extremities. PAST MEDICAL HISTORY: Significant for asthma/COPD, anxiety and osteoarthritis and also esophageal reflux. PAST SURGICAL HISTORY: Significant for cholecystectomy, appendectomy, right knee meniscal repair, lithotripsy and also hysterectomy. FAMILY HISTORY: Father did have a history of stroke. SOCIAL HISTORY: She is . She lives with her . She has 3 children. She drinks socially and also, she smokes about 1 pack per day. ALLERGIES: SHE IS ALLERGIC TO DUST AND GREEN CARRERO, MELOXICAM AND PENICILLIN. MEDICATIONS: As an outpatient, she has been on Tylenol 1 gram q. 8 hourly as needed, oxycodone 5-10 mg every 4 hours as needed, ProAir q. 6 hourly p.r.n., aspirin 81 mg daily, vitamin D3 2000 units daily, Lexapro 20 mg daily, Ativan 0.5 mg p.o. t.i.d. p.r.n., Singulair 10 mg daily, Protonix 40 mg daily and Advair 2 puffs b.i.d. She has been getting IV pain medications while in the hospital. REVIEW OF SYSTEMS: Other systems review unremarkable, except those mentioned in history of present complaint. PHYSICAL EXAMINATION: GENERAL: On examination on the medical floor, she was having minimal pain involving the right knee, but no other symptoms. VITAL SIGNS: Temperature 37.0, pulse was 85, blood pressure 130/82, saturation 97% on 2 liters nasal cannula. HEENT: Unremarkable. NECK: Supple. No JVD, no bruit. CHEST: Decreased breath sounds bilaterally, minimal, but no wheezing and/or crackles. HEART: S1, S2 regular. No murmur appreciated. ABDOMEN: Soft, benign, nontender, no organomegaly. Bowel sounds present. EXTREMITIES: Right knee is bandaged, minimal edema on the right side, but left side, no edema. CENTRAL NERVOUS SYSTEM: She was alert, awake, oriented x3. LABORATORY DATA: Noted today, white count was 7.04, H&H 10.9/34.7, platelet was 221. ESR 54. Chemistry is not done as of today, but C-reactive protein was 13.70. INR was 1.0, PTT ratio 1.2. IMPRESSION AND PLAN: 1. Status post right knee irrigation and debridement with poly exchange placement due to septic arthritis. The management will be as per orthopedics. An ID consultation has been requested and she has been on vancomycin. Continue with antibiotic for now. 2. Asthma/chronic obstructive pulmonary disease. She continues to smoke. She does not have any exacerbation at this time. Continue with her current inhalers for now and smoking cessation. 3. Anxiety. Does not have any acute anxiety attack at this time. Continue with her Lexapro and also Ativan as needed. 4. Gastrointestinal prophylaxis, Protonix. 5. Deep venous thrombosis prophylaxis, as per orthopedics. Thank you for this consultation. I will be following with you during this hospitalization. CELESTE
[2016-11-23 03:27] VITALS: BP 111/73; PULSE 68; TEMP 36.6; O2SAT 98
[2016-11-23] MEDS: OXYCODONE HCL IR 5 MG TAB (IMMEDIATE RELEASE) PO PRN ×5 (03:28→20:22)
[2016-11-23] MEDS: ACETAMINOPHEN 500 MG TAB PO SCH ×3 (06:04→21:59)
[2016-11-23 06:23] LABS: HEMATOCRIT 34.1 % (37-47); MEAN CELL VOLUME 99.1 fL (80-100); MEAN CORPUSCULAR HGB CONC 32.3 g/dl (32-36); MEAN PLATELET VOLUME 10.2 fL (7.4-10.4); PLATELET COUNT 225 K/uL (130-400); RED BLOOD COUNT 3.44 M/uL (4.2-5.4); WHITE BLOOD COUNT 8.67 K/uL (4.8-10.8)
--- NOTE | 2016-11-23 06:51 | Orthopedic Progress Note ---
Orthopedic Progress Note Date of Service Nov 23, 2016. Subjective Post OP Day: 1 Reports: feeling well, pain controlled w PO medications, Denies: complaints, chest pain, SOB, nausea / vomiting, light headedness, calf pain Objective calves soft nontender, N/V intact, capillary refill less than 2 sec., dressing C /D/I, A&O x3, toes mobile, hemovac drainage (50cc) Date Time Temp Pulse Resp B/P (MAP) Pulse Ox O2 Delivery O2 Flow Rate FiO2 11/23/16 03:27 36.6 68 14 111/73 (86) 98 Nasal Cannula 2.0 11/23/16 01:20 Nasal Cannula 2.0 11/23/16 00:20 36.6 78 16 115/74 (88) 97 Nasal Cannula 2.0 11/22/16 23:20 36.5 78 16 107/70 (82) 96 Nasal Cannula 2.0 11/22/16 22:20 37.0 85 18 130/82 (98) 97 Nasal Cannula 2.0 11/22/16 21:50 37.1 89 18 127/79 (95) 94 Nasal Cannula 2.0 11/22/16 21:20 37.1 12 125/72 (89) 94 Nasal Cannula 2.0 11/22/16 21:20 94 Nasal Cannula 2.0 11/22/16 21:10 37.4 97 16 130/79 94 Nasal Cannula 2 11/22/16 21:00 90 16 119/55 96 Nasal Cannula 2 11/22/16 20:50 96 16 105/63 96 Nasal Cannula 2 11/22/16 20:40 92 16 136/68 94 Nasal Cannula 2 11/22/16 20:30 99 13 136/54 98 Oxymask 10 11/22/16 20:20 94 13 137/73 97 Oxymask 10 11/22/16 20:14 37.4 102 16 157/83 98 Oxymask 10 11/22/16 19:35 95 Room Air 11/22/16 16:15 37.6 81 18 104/68 (80) 95 Room Air 11/22/16 16:05 37.6 18 104/68 Laboratory Results 24 Hours: Test 11/22/16 16:44 11/23/16 06:08 Hematocrit 34.7 % 34.1 % Hemoglobin 10.9 g/dL 11.0 g/dL Prothromb Time International Ratio 1.0 Prothrombin Time 10.7 SECONDS Assessment & Plan Assessment: POD #1 Cellulitis of Right TKA S/P wash out and poly exchange Plan: DVT prophylaxis - ASA PT/OT Discharge - uncertain appreciate medicine and ID consults and input Will obtain PICC line consent for when going home with IV antibiotics. Inhouse Planning Pain Management: Oxycontin, Morphine DVT Prophylaxis: TEDs, SCDs, ASA Discharge Planning Discharge Planning: uncertain DVT Prophylaxis: TEDs, ASA
[2016-11-23 06:52] LABS: BUN/CREATININE RATIO 12.9 (10-20); CALCIUM 8.9 mg/dl (8.5-10.1); CREATININE 0.83 mg/dl (0.60-1.20); MAGNESIUM 2.1 mg/dl (1.8-2.4); PHOSPHORUS 3.7 mg/dl (2.5-4.9)
[2016-11-23] MEDS: D5W AND 1/2NSS + 20MEQ KCL 1,000 ML IV SCH ×2 (07:39→17:57)
[2016-11-23] MEDS: ADVAIR~ORDER AWAITING ACTION SCH ×3 (07:39→15:34)
[2016-11-23 08:00] VITALS: BP 120/70; PULSE 64; TEMP 37; O2SAT 98
[2016-11-23] MEDS: ASPIRIN 81 MG ECTAB PO SCH ×2 (09:05→20:38)
[2016-11-23] MEDS: OXYCODONE HCL 10 MG TABCR (OXYCONTIN) PO SCH ×2 (09:05→20:38)
[2016-11-23] MEDS: MULTIVITAMIN TAB PO SCH (09:06)
[2016-11-23] MEDS: PANTOprazole SOD 40 MG TAB PO SCH (09:06)
[2016-11-23] MEDS: CHOLECALCIFEROL 1000 INTER.UNIT TAB PO SCH (09:06)
--- NOTE | 2016-11-23 10:09 | Medical Consult ---
Consultation Date of Consultation: Nov 23, 2016. Attending Physician: Montez Pastrana M.D. Reason for Consultation: Infected TKA History of Present Illness 61-year-old female with history of COPD/asthma who was status post right knee replacement in September 2016. Apparently had relatively poor wound healing with persistent serous drainage. She was followed at the [facility],apparently some debridement was performed. Over the last week, she has had progressive worsening with redness, swelling, and purulent drainage. She was admitted to the hospital and yesterday underwent surgical debridement with poly exchange. One operative specimen has Gram stain showing many gram-positive cocci. Currently being treated with IV vancomycin. Cultures are pending. She states that she had low-grade fever otherwise no new systemic complaints. Pain currently 4/10 in intensity. Past Medical/Surgical History PAST MEDICAL HISTORY: Significant for asthma/COPD, anxiety and osteoarthritis and also esophageal reflux. PAST SURGICAL HISTORY: Significant for cholecystectomy, appendectomy, right knee meniscal repair, lithotripsy and also hysterectomy. Family History Noncontributory Social History Smoking Status: Current Every Day Smoker Allergies Coded Allergies: Dust (Verified Allergy, Unknown, DUST POLLEN SNEEZING-EYES WATER, 11/22/16) Green Sanders (Verified Allergy, Unknown, UNKNOWN, 11/22/16) Meloxicam (Verified Allergy, Unknown, FACIAL SWELLING, 11/22/16) Penicillins (Verified Allergy, Unknown, PASS OUT,HIVES, 11/22/16) Current Inpatient Medications Current Inpatient Medications Medications (Trade) Dose Ordered Sig/Bita Route Start Time Stop Time Status Last Admin Dose Admin Aspirin (Ecotrin Tab) 81 mg BID PO 11/22/16 21:00 12/22/16 20:59 11/23/16 09:05 81 MG Escitalopram Oxalate (Lexapro Tab) 20 mg QPM PO 11/22/16 21:00 12/22/16 20:59 11/22/16 22:33 20 MG Lorazepam (Ativan Tab) 0.5 mg TID PRN PO 11/22/16 20:30 12/22/16 20:29 Montelukast Sodium (Singulair Tab) 10 mg QPM PO 11/22/16 21:00 12/22/16 20:59 11/22/16 22:33 10 MG Ondansetron HCl (Zofran Tab) 8 mg Q8 PRN PO 8/14/17 20:30 12/22/16 20:29 Oxycodone HCl (Oxycontin Tab) 10 mg Q12 PO 11/22/16 21:00 12/06/16 20:59 11/23/16 09:05 10 MG Pantoprazole Sodium (Protonix Tab) 40 mg QAM PO 11/23/16 09:00 12/23/16 08:59 11/23/16 09:06 40 MG Albuterol (Ventolin Hfa Inhaler) 2 puffs Q4H PRN INH 11/22/16 20:45 12/22/16 20:44 Cholecalciferol (Vitamin D Tab) 4,000 inter.unit QAM PO 11/23/16 09:00 12/23/16 08:59 11/23/16 09:06 4,000 INTER.UNIT Miscellaneous Information (Order Awaiting Action) 1 ea QS N/A 11/23/16 00:00 12/23/16 00:00 Potassium Chloride/Dextrose/ Sod Cl 1,000 ml @ 100 mls/hr Q10H IV 11/22/16 21:00 11/23/16 20:59 11/23/16 07:39 100 MLS/HR Oxycodone HCl (Roxicodone Immediate Rel Tab) 1 TABLET FOR PAIN RATING... Q4H PRN PO 11/22/16 20:30 12/06/16 20:29 11/23/16 07:39 10 MG Morphine Sulfate (MoRPHine SULFATE INJ) 2 mg Q2H PRN IV 11/22/16 20:30 12/06/16 20:29 11/23/16 06:07 2 MG Acetaminophen (Tylenol Tab) 1,000 mg Q8 PO 11/22/16 22:00 12/22/16 21:59 11/23/16 06:04 1,000 MG Magnesium Hydroxide (Milk Of Magnesia Susp) 30 ml Q6H PRN PO 11/22/16 20:30 12/22/16 20:29 Diphenhydramine HCl (Benadryl Cap) 25 mg Q8H PRN PO 11/22/16 20:30 12/22/16 20:29 Diphenhydramine HCl (Benadryl Inj) 25 mg Q8H PRN IV 11/22/16 20:30 12/22/16 20:29 Al Hydrox/Mg Hydrox/Simethicone (Maalox Max Susp) 15 ml Q4H PRN PO 11/22/16 20:30 12/22/16 20:29 Zolpidem Tartrate (Ambien Tab) 5 mg HSZ PRN PO 11/22/16 20:30 12/22/16 20:29 Multivitamins (Multivitamin Tab) 1 tab QAM PO 11/23/16 09:00 12/23/16 08:59 11/23/16 09:06 1 TAB Ondansetron HCl (Zofran Inj) 4 mg Q6H PRN IV 11/22/16 20:30 12/22/16 20:29 Vancomycin HCl (Consult) 1 ea UD PRN N/A 11/22/16 20:45 12/22/16 20:44 Vancomycin HCl 1250 mg/Sodium Chloride 275 ml @ 125 mls/hr Q16H IV 11/23/16 14:00 01/04/17 13:59 Review of Systems All systems were reviewed and are negative except as per HPI Physical Exam Date Time Temp Pulse Resp B/P (MAP) Pulse Ox O2 Delivery O2 Flow Rate FiO2 11/23/16 08:00 98 Room Air 11/23/16 08:00 37.0 64 12 120/70 (87) 98 Room Air 11/23/16 03:27 36.6 68 14 111/73 (86) 98 Nasal Cannula 2.0 11/23/16 01:20 Nasal Cannula 2.0 11/23/16 00:20 36.6 78 16 115/74 (88) 97 Nasal Cannula 2.0 11/22/16 23:20 36.5 78 16 107/70 (82) 96 Nasal Cannula 2.0 11/22/16 22:20 37.0 85 18 130/82 (98) 97 Nasal Cannula 2.0 11/22/16 21:50 37.1 89 18 127/79 (95) 94 Nasal Cannula 2.0 11/22/16 21:20 37.1 12 125/72 (89) 94 Nasal Cannula 2.0 11/22/16 21:20 94 Nasal Cannula 2.0 11/22/16 21:10 37.4 97 16 130/79 94 Nasal Cannula 2 11/22/16 21:00 90 16 119/55 96 Nasal Cannula 2 11/22/16 20:50 96 16 105/63 96 Nasal Cannula 2 11/22/16 20:40 92 16 136/68 94 Nasal Cannula 2 11/22/16 20:30 99 13 136/54 98 Oxymask 10 11/22/16 20:20 94 13 137/73 97 Oxymask 10 11/22/16 20:14 37.4 102 16 157/83 98 Oxymask 10 11/22/16 19:35 95 Room Air 11/22/16 16:15 37.6 81 18 104/68 (80) 95 Room Air 11/22/16 16:05 37.6 18 104/68 General Appearance: WD/WN, no apparent distress Head: normocephalic, atraumatic Eyes: normal inspection, EOMI, sclerae normal ENT: normal ENT inspection, hearing grossly normal, pharynx normal Neck: supple, no adenopathy, thyroid normal, trachea midline Respiratory/Chest: chest non-tender, lungs clear, normal breath sounds, no respiratory distress Cardiovascular: regular rate, rhythm, no gallop, no murmur Abdomen/GI: normal bowel sounds, non tender, soft, no organomegaly Back: normal inspection, no CVA tenderness Extremities/Musculoskelatal: no calf tenderness, normal capillary refill Neurologic/Psych: alert, oriented x 3 Skin: normal color, no rash, + pertinent finding (Surgical dressing intact right knee) Lymphatic: no adenopathy Laboratory Results Date/Time Source Procedure Growth Status 11/22/16 18:21 Joint Fluid/Space (Synovial) Knee Right Gram Stain - Final Resulted 11/22/16 18:21 Joint Fluid/Space (Synovial) Knee Right Bacterial Culture Pending Resulted 11/22/16 18:21 Joint Fluid/Space (Synovial) Knee Right Gram Stain - Final Resulted 11/22/16 18:21 Joint Fluid/Space (Synovial) Knee Right Bacterial Culture Pending Resulted Last 24 Hours Test 11/22/16 16:44 11/23/16 06:08 White Blood Count 7.04 K/uL 8.67 K/uL Red Blood Count 3.52 M/uL 3.44 M/uL Hemoglobin 10.9 g/dL 11.0 g/dL Hematocrit 34.7 % 34.1 % Mean Corpuscular Volume 98.6 fL 99.1 fL Mean Corpuscular Hemoglobin 31.0 pg 32.0 pg Mean Corpuscular Hemoglobin Concent 31.4 g/dl 32.3 g/dl RDW Standard Deviation 47.1 fL 48.1 fL RDW Coefficient of Variation 13.2 % 13.2 % Platelet Count 221 K/uL 225 K/uL Mean Platelet Volume 10.6 fL 10.2 fL Erythrocyte Sedimentation Rate 54 mm/hr Prothrombin Time 10.7 SECONDS Prothromb Time International Ratio 1.0 Activated Partial Thromboplast Time 30.2 SECONDS Partial Thromboplastin Ratio 1.2 C-Reactive Protein 13.70 mg/dl Sodium Level 138 mmol/L Potassium Level 5.0 mmol/L Chloride Level 105 mmol/L Carbon Dioxide Level 30 mmol/L Anion Gap 3.0 mmol/L Blood Urea Nitrogen 11 mg/dl Creatinine 0.83 mg/dl Est Creatinine Clear Calc Drug Dose 82.7 ml/min Estimated GFR () 88.2 Estimated GFR (Non- 76.1 BUN/Creatinine Ratio 12.9 Random Glucose 128 mg/dl Calcium Level 8.9 mg/dl Phosphorus Level 3.7 mg/dl Magnesium Level 2.1 mg/dl Patient Name: SACHA MATAMOROS Unit Number: [id number] Dictated: 11/22/162103 Transcribed: 11/22/162103 ARG Printed Date/Time: [~ rep prt dt]/[~ rep prt tm] [~ rep ct labl] - [~ rep ct ivnm] [facility] Radiology Department [place] [id number] Dictated: 11/22/162103 Transcribed: 11/22/162103 ARG Printed Date/Time: [~ rep prt dt]/[~ rep prt tm] [~ rep ct labl] - [~ rep ct ivnm] RIGHT KNEE 1 OR 2 VIEWS ROUTINE CLINICAL HISTORY: Postoperative examination COMPARISON: 10/01/2016 DISCUSSION: There are postsurgical changes of a total right knee arthroplasty and patellar resurfacing. There is air within the soft tissues. Underlying surgical drains are evident. There is soft tissue swelling. No acute fractures or dislocations are visualized. IMPRESSION: Postsurgical change. No acute fractures or dislocations are visualized. Electronically signed by: Hakeem Mancia M.D. 11/22/2016 9:06 PM Dictated Date/Time: 11/22/2016 9:04 PM The status of this report is Signed. Draft = Not yet reviewed or approved by Radiologist. Signed = Reviewed and approved by Radiologist. <AttendingPhy>Montez Pastrana M.D.</AttendingPhy> <FamilyPhy>Zen Smith M.D.</FamilyPhy> <PrimaryPhy>Zen Smith M.D.</PrimaryPhy> <UnitNumber> [id number]</UnitNumber> <VisitNumber>[id number]</VisitNumber> <PatientName> SACHA MATAMOROS</PatientName> <DateOfBirth>1955</DateOfBirth> <Location> W</Location> <ServiceDate></ServiceDate> <MNE>ESINDI</MNE> <OrderingPhy> Montez Pastrana M.D.</OrderingPhy> <OrderingPhyMNE>f rep ord dr kevin</ OrderingPhyMNE> <DictatingPhyMNE>f rep dict dr kevin</DictatingPhyMNE> <CCListMNE> f rep ct mne</CCListMNE> <AdmittingPhyMNE>f pt admit dr kevin</AdmittingPhyMNE> < AttendingPhyMNE>f pt attend dr kevin</AttendingPhyMNE> <ConsultingPhyMNE>f pt consult dr kevin</ConsultingPhyMNE> <FamilyPhyMNE>f pt fam dr kevin</FamilyPhyMNE> <OtherPhyMNE>f pt other dr kevin</OtherPhyMNE> < PrimaryPhyMNE>f pt prim care dr kevin</PrimaryPhyMNE> <ReferringPhyMNE>f pt referring dr kevin</ReferringPhyMNE> Assessment & Plan Infected right TKA now status post debridement and poly exchange. Vancomycin appropriate therapy pending operative culture results. I will adjust antibiotics once available. Patient will require prolonged i.e. 6-8 weeks of IV antibiotic therapy. Will require PICC line. Will follow.
--- NOTE | 2016-11-23 11:03 | Anesthesiology Progress Note ---
Anesthesia Post Op Note Date & Time Nov 23, 2016 at 11:02 Vital Signs Pain Intensity: 8.0 Vital Signs Past 12 Hours Date Time Temp Pulse Resp B/P (MAP) Pulse Ox O2 Delivery O2 Flow Rate FiO2 11/23/16 08:00 98 Room Air 11/23/16 08:00 37.0 64 12 120/70 (87) 98 Room Air 11/23/16 03:27 36.6 68 14 111/73 (86) 98 Nasal Cannula 2.0 11/23/16 01:20 Nasal Cannula 2.0 11/23/16 00:20 36.6 78 16 115/74 (88) 97 Nasal Cannula 2.0 11/22/16 23:20 36.5 78 16 107/70 (82) 96 Nasal Cannula 2.0 Notes Mental Status: alert / awake / arousable, participated in evaluation Pt Amnestic to Procedure: Yes Nausea / Vomiting: adequately controlled Pain: improving with treatment, see Notes Airway Patency, RR, SpO2: stable & adequate BP & HR: stable & adequate Hydration State: stable & adequate Anesthetic Complications: no major complications apparent Rn to bring in more pain medications. Instructed to ask them for more when needed.
[2016-11-23 12:00] VITALS: BP 102/68; PULSE 68; TEMP 37.1; O2SAT 96
[2016-11-23] MEDS ORDERED: VANCOMYCIN INJ 1,500 MG in SODIUM CHLORIDE 0.9% 250ML 250 ML IV SCH (14:00)
[2016-11-23] MEDS ORDERED: VANCOMYCIN INJ 1,250 MG in SODIUM CHLORIDE 0.9% 250ML 250 ML IV SCH (14:00)
[2016-11-23] MEDS: VANCOMYCIN INJ 1,500 MG in SODIUM CHLORIDE 0.9% 500ML 500 ML IV SCH (14:24)
[2016-11-23 15:18] VITALS: BP 125/75; PULSE 80; TEMP 37.3; O2SAT 97
--- NOTE | 2016-11-23 20:02 | Progress Note ---
Internal Med Progress Note Date of Service: Nov 23, 2016. Provider Documentation: SUBJECTIVE: resting comfortably afebrile has pain at procedure site no chest pain or sob OBJECTIVE: Vital Signs-as noted below Exam: General-alert and awake. Not in distress ENT-normal hearing Neck-no neck masses Lungs-cta b/l no wheezing or crackles Heart-s1 and s2 heard regular rhythm no murmurs Abdomen-soft bowel sounds present non tender no distension Extremities-no edema no erythema s/p I and D of right knee Neuro-alert and oriented moves extremities Lab data as noted below. ASSESSMENT & PLAN: 1. Status post right knee irrigation and debridement with poly exchange placement due to septic arthritis. Recent knee surgery on iv vanco await cx ID on board s/p picc line. 2. Asthma/chronic obstructive pulmonary disease. stable . 3. Anxiety.on Lexapro and Ativan as needed. 4. Gastrointestinal prophylaxis, Protonix. DVT PROPHYLAXIS as per ortho DISPOSITION as per ortho Vital Signs: Date Time Temp Pulse Resp B/P (MAP) Pulse Ox O2 Delivery O2 Flow Rate FiO2 11/23/16 15:18 37.3 80 18 125/75 (92) 97 Room Air 11/23/16 12:00 37.1 68 16 102/68 (79) 96 Room Air 11/23/16 08:00 98 Room Air 11/23/16 08:00 37.0 64 12 120/70 (87) 98 Room Air 11/23/16 07:30 Room Air 11/23/16 03:27 36.6 68 14 111/73 (86) 98 Nasal Cannula 2.0 11/23/16 01:20 Nasal Cannula 2.0 11/23/16 00:20 36.6 78 16 115/74 (88) 97 Nasal Cannula 2.0 11/22/16 23:20 36.5 78 16 107/70 (82) 96 Nasal Cannula 2.0 11/22/16 22:20 37.0 85 18 130/82 (98) 97 Nasal Cannula 2.0 11/22/16 21:50 37.1 89 18 127/79 (95) 94 Nasal Cannula 2.0 11/22/16 21:20 37.1 12 125/72 (89) 94 Nasal Cannula 2.0 11/22/16 21:20 94 Nasal Cannula 2.0 11/22/16 21:10 37.4 97 16 130/79 94 Nasal Cannula 2 11/22/16 21:00 90 16 119/55 96 Nasal Cannula 2 11/22/16 20:50 96 16 105/63 96 Nasal Cannula 2 11/22/16 20:40 92 16 136/68 94 Nasal Cannula 2 11/22/16 20:30 99 13 136/54 98 Oxymask 10 11/22/16 20:20 94 13 137/73 97 Oxymask 10 11/22/16 20:14 37.4 102 16 157/83 98 Oxymask 10 Lab Results: Results Past 24 Hours Test 11/23/16 06:08 Range/Units White Blood Count 8.67 4.8-10.8 K/uL Red Blood Count 3.44 4.2-5.4 M/uL Hemoglobin 11.0 12.0-16.0 g/dL Hematocrit 34.1 37-47 % Mean Corpuscular Volume 99.1 80-100 fL Mean Corpuscular Hemoglobin 32.0 25-34 pg Mean Corpuscular Hemoglobin Concent 32.3 32-36 g/dl RDW Standard Deviation 48.1 36.4-46.3 fL RDW Coefficient of Variation 13.2 11.5-14.5 % Platelet Count 225 130-400 K/uL Mean Platelet Volume 10.2 7.4-10.4 fL Sodium Level 138 136-145 mmol/L Potassium Level 5.0 3.5-5.1 mmol/L Chloride Level 105 98-107 mmol/L Carbon Dioxide Level 30 21-32 mmol/L Anion Gap 3.0 3-11 mmol/L Blood Urea Nitrogen 11 7-18 mg/dl Creatinine 0.83 0.60-1.20 mg/dl Est Creatinine Clear Calc Drug Dose 82.7 ml/min Estimated GFR () 88.2 Estimated GFR (Non- 76.1 BUN/Creatinine Ratio 12.9 10-20 Random Glucose 128 70-99 mg/dl Calcium Level 8.9 8.5-10.1 mg/dl Phosphorus Level 3.7 2.5-4.9 mg/dl Magnesium Level 2.1 1.8-2.4 mg/dl
[2016-11-23] MEDS: ESCITALOPRAM OXALATE 20 MG TAB PO SCH (20:38)
[2016-11-23] MEDS: MONTELUKAST SOD 10 MG TAB PO SCH (20:38)
[2016-11-23 22:45] VITALS: BP 106/64; PULSE 73; TEMP 37.1; O2SAT 96
[2016-11-24] MEDS: OXYCODONE HCL IR 5 MG TAB (IMMEDIATE RELEASE) PO PRN ×6 (00:38→23:58)
[2016-11-24] MEDS: VANCOMYCIN INJ 1,500 MG in SODIUM CHLORIDE 0.9% 500ML 500 ML IV SCH ×2 (01:36→14:53)
[2016-11-24] MEDS: ACETAMINOPHEN 500 MG TAB PO SCH ×3 (06:10→22:02)
[2016-11-24] MEDS: ADVAIR~ORDER AWAITING ACTION SCH ×4 (07:54→23:45)
[2016-11-24 08:00] VITALS: BP 94/58; PULSE 70; TEMP 37; O2SAT 94
[2016-11-24] MEDS: OXYCODONE HCL 10 MG TABCR (OXYCONTIN) PO SCH ×2 (09:29→21:10)
[2016-11-24] MEDS: PANTOprazole SOD 40 MG TAB PO SCH (09:29)
[2016-11-24] MEDS: MULTIVITAMIN TAB PO SCH (09:29)
[2016-11-24] MEDS: ASPIRIN 81 MG ECTAB PO SCH ×2 (09:30→21:10)
[2016-11-24] MEDS: CHOLECALCIFEROL 1000 INTER.UNIT TAB PO SCH (09:30)
[2016-11-24 12:00] VITALS: BP 114/80; PULSE 68; TEMP 37.1; O2SAT 93
[2016-11-24] MEDS: MoRPHine SULFATE 2 MG/ML CARP IV PRN ×2 (13:17→17:57)
[2016-11-24] MEDS ORDERED: VANCOMYCIN TROUGH SCH ×2 (13:30→19:30)
--- NOTE | 2016-11-24 14:43 | Infectious Disease Progress Nt ---
Progress Note Date of Service Nov 24, 2016. Subjective Pt evaluation today including: conversation w/ patient, physical exam, chart review, lab review, review of studies, conversation w/ collection systems consultant, review of inpatient medication list Offers no new complaints today. Remains afebrile. Tolerating antibiotics. Cultures have grown a methicillin sensitive Staph aureus. All Other Systems: Reviewed and Negative Medications Current Inpatient Medications Medications (Trade) Dose Ordered Sig/Bita Route Start Time Stop Time Status Last Admin Dose Admin Aspirin (Ecotrin Tab) 81 mg BID PO 11/22/16 21:00 12/22/16 20:59 11/24/16 09:30 81 MG Escitalopram Oxalate (Lexapro Tab) 20 mg QPM PO 11/22/16 21:00 12/22/16 20:59 11/23/16 20:38 20 MG Lorazepam (Ativan Tab) 0.5 mg TID PRN PO 11/22/16 20:30 12/22/16 20:29 Montelukast Sodium (Singulair Tab) 10 mg QPM PO 11/22/16 21:00 12/22/16 20:59 11/23/16 20:38 10 MG Ondansetron HCl (Zofran Tab) 8 mg Q8 PRN PO 11/22/16 20:30 12/22/16 20:29 Oxycodone HCl (Oxycontin Tab) 10 mg Q12 PO 11/22/16 21:00 12/06/16 20:59 11/24/16 09:29 10 MG Pantoprazole Sodium (Protonix Tab) 40 mg QAM PO 11/23/16 09:00 12/23/16 08:59 11/24/16 09:29 40 MG Albuterol (Ventolin Hfa Inhaler) 2 puffs Q4H PRN INH 11/22/16 20:45 12/22/16 20:44 Cholecalciferol (Vitamin D Tab) 4,000 inter.unit QAM PO 11/23/16 09:00 12/23/16 08:59 11/24/16 09:30 4,000 INTER.UNIT Miscellaneous Information (Order Awaiting Action) 1 ea QS N/A 11/23/16 00:00 12/23/16 00:00 Oxycodone HCl (Roxicodone Immediate Rel Tab) 1 TABLET FOR PAIN RATING... Q4H PRN PO 11/22/16 20:30 12/06/16 20:29 11/24/16 10:45 10 MG Morphine Sulfate (MoRPHine SULFATE INJ) 2 mg Q2H PRN IV 11/22/16 20:30 12/06/16 20:29 11/24/16 13:17 2 MG Acetaminophen (Tylenol Tab) 1,000 mg Q8 PO 11/22/16 22:00 12/22/16 21:59 11/24/16 06:10 1,000 MG Magnesium Hydroxide (Milk Of Magnesia Susp) 30 ml Q6H PRN PO 11/22/16 20:30 12/22/16 20:29 Diphenhydramine HCl (Benadryl Cap) 25 mg Q8H PRN PO 11/22/16 20:30 12/22/16 20:29 Diphenhydramine HCl (Benadryl Inj) 25 mg Q8H PRN IV 11/22/16 20:30 12/22/16 20:29 Al Hydrox/Mg Hydrox/Simethicone (Maalox Max Susp) 15 ml Q4H PRN PO 11/22/16 20:30 12/22/16 20:29 Zolpidem Tartrate (Ambien Tab) 5 mg HSZ PRN PO 11/22/16 20:30 12/22/16 20:29 Multivitamins (Multivitamin Tab) 1 tab QAM PO 11/23/16 09:00 12/23/16 08:59 11/24/16 09:29 1 TAB Ondansetron HCl (Zofran Inj) 4 mg Q6H PRN IV 11/22/16 20:30 12/22/16 20:29 Vancomycin HCl (Consult) 1 ea UD PRN N/A 11/22/16 20:45 12/22/16 20:44 Vancomycin HCl 1500 mg/Sodium Chloride 530 ml @ 200 mls/hr Q12H IV 11/23/16 14:00 01/04/17 13:59 11/24/16 01:36 200 MLS/HR Heparin Sodium (Porcine) (Heparin 10 Unit/ ml 5 ml Flush) 5 ml PRN PRN FLUSH 11/23/16 17:30 12/23/16 17:29 11/24/16 08:26 5 ML Objective Vital Signs Date Time Temp Pulse Resp B/P (MAP) Pulse Ox O2 Delivery O2 Flow Rate FiO2 11/24/16 12:00 37.1 68 14 114/80 (91) 93 Room Air 11/24/16 08:00 37.0 70 14 94/58 (70) 94 Room Air 11/24/16 08:00 94 Room Air 11/24/16 07:40 Room Air 11/24/16 00:25 Room Air 11/23/16 22:45 37.1 73 15 106/64 (78) 96 Room Air 11/23/16 15:30 Room Air 11/23/16 15:18 37.3 80 18 125/75 (92) 97 Room Air Physical Exam General Appearance: WD/WN, no apparent distress Eyes: normal inspection, sclerae normal ENT: normal ENT inspection, pharynx normal Neck: supple, no adenopathy, trachea midline Respiratory/Chest: lungs clear, normal breath sounds, no respiratory distress Cardiovascular: regular rate, rhythm, no gallop, no murmur Abdomen: normal bowel sounds, non tender, soft, no organomegaly Extremities: non-tender, no calf tenderness Neurologic/Psychiatric: alert, oriented x 3 Skin: normal color, no rash, + pertinent finding (Surgical dressing intact) Lymphatic: no adenopathy Laboratory Results RUN DATE: 11/24/16 [facility] LAB PAGE 1 RUN TIME: 1421 Specimen Inquiry PATIENT: SACHA MATAMOROS LOC: [facility] U # : [id number] AGE/SX: 61/F ROOM: [facility] REG : 11/22/[address]: Montez Pastrana M.D. : 1955 BED: 1 DIS : STATUS: ADM IN TLOC: SPEC #: [id number] CHARLIE: 11/22/16 STATUS: RES REQ #: [id number] RECD: 11/22/[address]: Montez Pastrana M.D. SOURCE: JOINT FLSP ENTR: 11/22/[address]: Iban Cardoza MD SPDESC: KNEE RIGHT Zen Smith M.D. ORDERED: AER/STEFFI CULTSMR COMMENTS: RIGHT DISTAL KNEE Procedure Result Verified Site GRAM STAIN Final 11/23/16 RESULT MANY WBCs SEEN MANY GRAM POSITIVE COCCI OR AER/STEFFI CULT Preliminary 11/24/16 Organism 1 STAPHYLOCOCCUS AUREUS QUANITY MODERATE SENS SENSITIVITY TO FOLLOW 1. STAPHYLOCOCCUS AUREUS Target Route Dose RX AB Cost M.I.C. IQ ------ ----- ------ -- ------ -------- - ------ TRIMET/SULFA S <=0.5/ 9.5 * OXACILLIN S 0.5 VANCOMYCIN S 2 ERYTHROMYCIN S <=0.5 TETRACYCLINE S <=4 CLINDAMYCIN I 1 DAPTOMYCIN S <=0.5 S = SENSITIVE I = INTERMEDIATE R = RESISTANT Last 24 Hours Test 11/24/16 14:23 Assessment and Plan Infected right TKA now status post debridement and poly exchange. Cultures have grown methicillin sensitive Staph aureus. Given patient's penicillin allergy, would recommend the use of IV daptomycin which would allow for once daily dosing at home. Will discuss with all involved. Will follow.
[2016-11-24 15:27] VITALS: BP 107/66; PULSE 77; TEMP 37.3; O2SAT 95
--- NOTE | 2016-11-24 15:40 | Pharmacy Progress Note ---
Pharmacy Antibiotic Prog Note Date of Service Nov 24, 2016. Subjective The patient is currently receiving vancomycin 1500 mg IV every 12 hours. The patient is currently on day # 3 of vancomycin IV therapy. Objective Height (Feet): 5 Height (Inches): 5.00 Weight (Kilograms): 98.500 Lab Results (24hrs): Test 11/24/16 14:23 Vancomycin Level Trough 11.6 mcg/ml (SEE COMMENT) Assessment & Plan Assessment * 61 yo F with infected TKA with MSSA isolated. Receiving vancomycin. Per ID / Dr. Cardoza - PCN allergy therefore recommended daptomycin as outpatient 2nd once daily administration. Will continue vancomycin as inpatient. * Goal vancomycin trough 15-20 mcg/mL * Trough of 11.6 mcg/mL is subtherapeutic. However, this may be before steady state and some further accumulation may be anticipated based on BMI. Therefore will increase dose only slightly. * Trough prior to 4th dose of new regimen Plan * Increase vancomycin 1750 mg IV q12h * Trough 11/26 @ 1130 Pharmacy will continue to follow and will adjust dose/frequency as necessary. Thank you
--- NOTE | 2016-11-24 16:15 | Orthopedic Progress Note ---
Orthopedic Progress Note Date of Service Nov 24, 2016. Subjective Post OP Day: 2 Reports: feeling well Additional Notes: pain much better today Objective Date Time Temp Pulse Resp B/P (MAP) Pulse Ox O2 Delivery O2 Flow Rate FiO2 11/24/16 15:27 37.3 77 18 107/66 (80) 95 Room Air 11/24/16 12:00 37.1 68 14 114/80 (91) 93 Room Air 11/24/16 08:00 37.0 70 14 94/58 (70) 94 Room Air 11/24/16 08:00 94 Room Air 11/24/16 07:40 Room Air 11/24/16 00:25 Room Air 11/23/16 22:45 37.1 73 15 106/64 (78) 96 Room Air Assessment & Plan Assessment: POD #2 Cellulitis of Right TKA S/P wash out and poly exchange Plan: DVT prophylaxis - ASA PT/OT appreciate medicine and ID consults and input PICC line in. Cx's growing MSSA, Dr. Cardoza rec Daptomycin for home IV therapy will also nee [facility] for PT for knee Inhouse Planning Pain Management: Oxycontin, Morphine DVT Prophylaxis: TEDs, SCDs, ASA Discharge Planning Discharge Planning: home with IV medication, uncertain DVT Prophylaxis: TEDs, ASA
--- NOTE | 2016-11-24 18:45 | Progress Note ---
Internal Med Progress Note Date of Service: Nov 24, 2016. Provider Documentation: SUBJECTIVE: resting comfortably afebrile ambulated ok no complaints OBJECTIVE: Vital Signs-as noted below Exam: General-alert and awake. Not in distress ENT-normal hearing Neck-no neck masses Lungs-cta b/l no wheezing or crackles Heart-s1 and s2 heard regular rhythm no murmurs Abdomen-soft bowel sounds present non tender no distension Extremities-no edema no erythema s/p I and D of right knee Neuro-alert and oriented moves extremities Lab data as noted below. ASSESSMENT & PLAN: 1. Status post right knee irrigation and debridement with poly exchange placement due to septic arthritis. Recent knee surgery on iv vanco await cx ID on board s/p picc line. cx MSSA ID recommends iv daptomycin for ease of use at discharge 2. Asthma/chronic obstructive pulmonary disease. stable . 3. Anxiety.on Lexapro and Ativan as needed. 4. Gastrointestinal prophylaxis, Protonix. DVT PROPHYLAXIS as per ortho DISPOSITION as per ortho Vital Signs: Date Time Temp Pulse Resp B/P (MAP) Pulse Ox O2 Delivery O2 Flow Rate FiO2 11/24/16 15:27 37.3 77 18 107/66 (80) 95 Room Air 11/24/16 12:00 37.1 68 14 114/80 (91) 93 Room Air 11/24/16 08:00 37.0 70 14 94/58 (70) 94 Room Air 11/24/16 08:00 94 Room Air 11/24/16 07:40 Room Air 11/24/16 00:25 Room Air 11/23/16 22:45 37.1 73 15 106/64 (78) 96 Room Air Lab Results: Results Past 24 Hours Test 11/24/16 14:23 Range/Units Vancomycin Level Trough 11.6 SEE COMMENT mcg/ml
[2016-11-24] MEDS: MONTELUKAST SOD 10 MG TAB PO SCH (21:10)
[2016-11-24] MEDS: ESCITALOPRAM OXALATE 20 MG TAB PO SCH (21:10)
[2016-11-24 23:47] VITALS: BP 101/64; PULSE 73; TEMP 36.8; O2SAT 95
[2016-11-24] MEDS: VANCOMYCIN INJ 1,750 MG in SODIUM CHLORIDE 0.9% 500ML 500 ML IV SCH (23:56)
[2016-11-25] MEDS: ACETAMINOPHEN 500 MG TAB PO SCH ×2 (05:15→13:30)
[2016-11-25] MEDS: OXYCODONE HCL IR 5 MG TAB (IMMEDIATE RELEASE) PO PRN ×3 (05:16→15:29)
[2016-11-25] MEDS: ADVAIR~ORDER AWAITING ACTION SCH (06:51)
--- NOTE | 2016-11-25 06:56 | Orthopedic Progress Note ---
Orthopedic Progress Note Date of Service Nov 25, 2016. Subjective Post OP Day: 3 Reports: feeling well, pain controlled w PO medications, Denies: complaints, chest pain, SOB, nausea / vomiting, light headedness, calf pain Additional Notes: Patient states that she is feeling well. She has no complaints. Objective calves soft nontender, N/V intact, capillary refill less than 2 sec., dressing C /D/I, A&O x3, toes mobile Date Time Temp Pulse Resp B/P (MAP) Pulse Ox O2 Delivery O2 Flow Rate FiO2 11/24/16 23:50 Room Air 11/24/16 23:47 36.8 73 16 101/64 (76) 95 Room Air 11/24/16 15:45 Room Air 11/24/16 15:27 37.3 77 18 107/66 (80) 95 Room Air 11/24/16 12:00 37.1 68 14 114/80 (91) 93 Room Air 11/24/16 08:00 37.0 70 14 94/58 (70) 94 Room Air 11/24/16 08:00 94 Room Air 11/24/16 07:40 Room Air Assessment & Plan Assessment: POD #3 Cellulitis of Right TKA S/P wash out and poly exchange Plan: DVT prophylaxis - ASA PT/OT appreciate medicine and ID consults and input PICC line in. Cx's growing MSSA, Dr. Cardoza rec Daptomycin for home IV therapy will also need home health for PT for knee Inhouse Planning Pain Management: Oxycontin, Morphine DVT Prophylaxis: TEDs, SCDs, ASA Discharge Planning Discharge Planning: home with IV medication Pain Management: Oxycontin, Oxy IR DVT Prophylaxis: TEDs, ASA Therapy: Physical Therapy
--- NOTE | 2016-11-25 07:02 | Discharge Instructions ---
Discharge Instructions Date of Service Nov 25, 2016. Admission Reason for Admission: Post Op Infection Discharge Discharge Diagnosis / Problem: S/P right knee TKA infection with wash out and poly exchange Discharge Goals Goal(s): Decrease discomfort, Improve function Activity Recommendations Activity Limitations: per Instructions/Follow-up section . Instructions / Follow-Up Instructions / Follow-Up ACTIVITY RECOMMENDATIONS: SELF CARE INSTRUCTIONS AFTER TOTAL KNEE REPLACEMENT A. You may need to continue a physical therapy program after discharge from the hospital. There are several options available to you. Your doctor will assist you in selecting the best one for you. 1. An out-patient facility 2 to 3 times a week for therapy or home therapy. 2. Continue working on all exercises taught to you in the hospital. Your goals should be to increase bending of your knee to 90 degrees and beyond and to fully straighten your knee. B. You may progress at your own pace from walking with a walker or crutches to a cane; then to no assistive devices. C. Make walking a part of your daily routine. Be up as much as comfortable with rest periods throughout the day. Rest with leg elevation is very important. Use the ice wrap frequently for the first 3-4 weeks. D. There are no restrictions on activities. 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 E. Wear the long elastic stockings (CELY hose) 20 hours a day for 2 weeks after surgery. They can be removed several times a day for laundering and for a bath. F. You may shower, no tub baths until cleared by your doctor. G. You will be given a script for IV medication and labs. This is to be done with Home health. This will be a once a day medication. SPECIAL CARE INSTRUCTIONS: VERY IMPORTANT TO READ AND REVIEW A. There are a few signs you need to watch for after you are home. Call [facility] if you notice any of the followin. Increased severe knee pain. Some pain is expected especially when you exercise. 2. Increased swelling in your leg or knee; pain or swelling of the calf muscle in either lower leg. 3. Any fluid drainage from the incision. 4. Shortness of breath or chest pain. B. Please call [facility] at if you have any concerns or questions about your operation or recovery. The doctor or his nurse will return your call promptly. C. You must take antibiotics before dental work, bladder, bowel or other surgery. Your doctor will provide you with a permanent care to carry describing this precaution. IMPORTANT: * REMEMBER TO TAKE ASPIRIN, 81 MG, TWICE DAILY FOR 4 WEEKS UNLESS OTHERWISE DIRECTED. THIS IS YOUR BLOOD THINNER. * CALL IF INCREASED PAIN, REDNESS, DRAINAGE OR FEVER GREATER THAT 101. * WEAR CELY HOSE 20 HOURS PER DAY FOR 2 WEEKS. * YOU MAY HAVE A LARGE BAND-AID LIKE DRESSING (Prevena). THIS WILL REMAIN ON YOUR INCISION FOR 7 DAYS, THEN CAN BE REMOVED. IF INCISION IS LEAKING THROUGH DRESSING, CALL THE OFFICE . * HOME HEALTH WILL BE DRAWING WEEKLY LABS FROM YOU AND SENDING THEM TO DR ALVAREZ. HE WILL MAKE CHANGES TO YOUR ANTIBIOTICS NECESSARY. FOLLOW UP VISIT: If appointment is not already scheduled: Please call [facility] to make a follow-up appointment for 2 weeks after your surgery at . Follow up with infectious disease as discussed with Infectious Disease team. Make an appointment by calling [phone]. Current Hospital Diet Patient's current hospital diet: Regular Diet Discharge Diet Recommended Diet: Regular Diet Procedures Procedures Performed: right knee irrigation and debridment, poly exchange Pending Studies Studies pending at discharge: no Laboratory Results Hemoglobin A1c Test 09/15/16 11:51 Range/Units Estimated Average Glucose 128 mg/dl Hemoglobin A1c 6.1 H 4.5-5.6 % Medical Emergencies . Who to Call and When: Medical Emergencies: If at any time you feel your situation is an emergency, please call 911 immediately. . Non-Emergent Contact Non-Emergency issues call your: Surgeon Call Non-Emergent contact if: temperature is above 101, your pain is worsening , wound has increased drainage, wound has increased redness . "Provider Documentation" section prepared by Simon Tom. . VTE Core Measure Inpt VTE Proph given/why not?: Other Anticoagulation (ASA), T.EJulia Vieyra [place] Drug Monitoring Program Search Results: patient reviewed within database, no issues identified
[2016-11-25] MEDS ORDERED: ACET-24 PO (07:04)
[2016-11-25] MEDS ORDERED: RXC5 PO (07:04)
[2016-11-25] MEDS ORDERED: OXYSR10 PO (07:04)
[2016-11-25 07:09] LABS: CREATININE 0.74 mg/dl (0.60-1.20)
[2016-11-25 07:57] VITALS: BP 104/68; PULSE 64; TEMP 36.6; O2SAT 92
[2016-11-25 07:58] VITALS: O2SAT 92
[2016-11-25] MEDS: OXYCODONE HCL 10 MG TABCR (OXYCONTIN) PO SCH (08:24)
[2016-11-25] MEDS: PANTOprazole SOD 40 MG TAB PO SCH (08:25)
[2016-11-25] MEDS: MULTIVITAMIN TAB PO SCH (08:25)
[2016-11-25] MEDS: CHOLECALCIFEROL 1000 INTER.UNIT TAB PO SCH (08:25)
[2016-11-25] MEDS: ASPIRIN 81 MG ECTAB PO SCH (08:25)
[2016-11-25] MEDS: VANCOMYCIN INJ 1,750 MG in SODIUM CHLORIDE 0.9% 500ML 500 ML IV SCH (11:38)
[2016-11-25] MEDS ORDERED: DAPTOmycin IV 600 MG in SODIUM CHLORIDE 0.9% 50ML 50 ML IV SCH (12:50)
[2016-11-25] MEDS ORDERED: DAPT500I IV (13:22)
[2016-11-25] MEDS: MoRPHine SULFATE 2 MG/ML CARP IV PRN (13:33)
[2016-11-25 14:37] VITALS: BP 104/68; PULSE 64; TEMP 36.6; O2SAT 92
--- NOTE | 2016-11-25 15:01 | Infectious Disease Progress Nt ---
Progress Note Date of Service Nov 25, 2016. Subjective Pt evaluation today including: conversation w/ patient, physical exam, chart review, lab review, review of studies, conversation w/ fitness sales consultant, review of inpatient medication list Offering no new complaints today. Pain controlled. Tolerating antibiotic without apparent difficulty. Remains afebrile. Culture growing methicillin sensitive Staph aureus. All Other Systems: Reviewed and Negative Medications Current Inpatient Medications Medications (Trade) Dose Ordered Sig/Bita Route Start Time Stop Time Status Last Admin Dose Admin Aspirin (Ecotrin Tab) 81 mg BID PO 11/22/16 21:00 12/22/16 20:59 11/25/16 08:25 81 MG Escitalopram Oxalate (Lexapro Tab) 20 mg QPM PO 11/22/16 21:00 12/22/16 20:59 11/24/16 21:10 20 MG Lorazepam (Ativan Tab) 0.5 mg TID PRN PO 11/22/16 20:30 12/22/16 20:29 Montelukast Sodium (Singulair Tab) 10 mg QPM PO 11/22/16 21:00 12/22/16 20:59 11/24/16 21:10 10 MG Ondansetron HCl (Zofran Tab) 8 mg Q8 PRN PO 11/22/16 20:30 12/22/16 20:29 Oxycodone HCl (Oxycontin Tab) 10 mg Q12 PO 11/22/16 21:00 12/06/16 20:59 11/25/16 08:24 10 MG Pantoprazole Sodium (Protonix Tab) 40 mg QAM PO 11/23/16 09:00 12/23/16 08:59 11/25/16 08:25 40 MG Albuterol (Ventolin Hfa Inhaler) 2 puffs Q4H PRN INH 11/22/16 20:45 12/22/16 20:44 Cholecalciferol (Vitamin D Tab) 4,000 inter.unit QAM PO 11/23/16 09:00 12/23/16 08:59 11/25/16 08:25 4,000 INTER.UNIT Miscellaneous Information (Order Awaiting Action) 1 ea QS N/A 11/23/16 00:00 12/23/16 00:00 Oxycodone HCl (Roxicodone Immediate Rel Tab) 1 TABLET FOR PAIN RATING... Q4H PRN PO 11/22/16 20:30 12/06/16 20:29 11/25/16 10:29 10 MG Morphine Sulfate (MoRPHine SULFATE INJ) 2 mg Q2H PRN IV 11/22/16 20:30 12/06/16 20:29 11/25/16 13:33 2 MG Acetaminophen (Tylenol Tab) 1,000 mg Q8 PO 11/22/16 22:00 12/22/16 21:59 11/25/16 13:30 1,000 MG Magnesium Hydroxide (Milk Of Magnesia Susp) 30 ml Q6H PRN PO 11/22/16 20:30 12/22/16 20:29 Diphenhydramine HCl (Benadryl Cap) 25 mg Q8H PRN PO 11/22/16 20:30 12/22/16 20:29 Diphenhydramine HCl (Benadryl Inj) 25 mg Q8H PRN IV 11/22/16 20:30 12/22/16 20:29 Al Hydrox/Mg Hydrox/Simethicone (Maalox Max Susp) 15 ml Q4H PRN PO 11/22/16 20:30 12/22/16 20:29 Zolpidem Tartrate (Ambien Tab) 5 mg HSZ PRN PO 11/22/16 20:30 12/22/16 20:29 Multivitamins (Multivitamin Tab) 1 tab QAM PO 11/23/16 09:00 12/23/16 08:59 11/25/16 08:25 1 TAB Ondansetron HCl (Zofran Inj) 4 mg Q6H PRN IV 11/22/16 20:30 12/22/16 20:29 Heparin Sodium (Porcine) (Heparin 10 Unit/ ml 5 ml Flush) 5 ml PRN PRN FLUSH 11/23/16 17:30 12/23/16 17:29 11/25/16 08:29 5 ML Daptomycin 600 mg/ Sodium Chloride 62 ml @ 100 mls/hr DAILY IV 11/25/16 12:50 01/06/17 12:49 11/25/16 13:33 100 MLS/HR Objective Vital Signs Date Time Temp Pulse Resp B/P (MAP) Pulse Ox O2 Delivery O2 Flow Rate FiO2 11/25/16 14:37 36.6 64 12 92 Room Air 11/25/16 07:58 92 Room Air 11/25/16 07:57 36.6 64 12 104/68 (80) 92 Room Air 11/25/16 07:15 Room Air 11/24/16 23:50 Room Air 11/24/16 23:47 36.8 73 16 101/64 (76) 95 Room Air 11/24/16 15:45 Room Air 11/24/16 15:27 37.3 77 18 107/66 (80) 95 Room Air Physical Exam General Appearance: WD/WN, no apparent distress Eyes: normal inspection, sclerae normal ENT: normal ENT inspection, pharynx normal Neck: supple, no adenopathy, trachea midline Respiratory/Chest: lungs clear, normal breath sounds, no respiratory distress Cardiovascular: regular rate, rhythm, no gallop, no murmur Abdomen: normal bowel sounds, non tender, soft, no organomegaly Extremities: non-tender, no calf tenderness Neurologic/Psychiatric: alert, oriented x 3 Skin: normal color, warm/dry, no rash Lymphatic: no adenopathy Laboratory Results PAGE 1 RUN TIME: 1149 Specimen Inquiry [id number] LOC: [facility] # : [id number] AGE/SX: 61/F ROOM: [facility] REG : 11/22/[address]: Montez Pastrana M.D. : 1955 BED: 1 DIS : STATUS: ADM IN TLOC: SPEC #: [id number] CHARLIE: 11/22/16 STATUS: RES REQ #: [id number] RECD: 11/22/[address] [facility] [address]: Motnez Pastrana M.D. SOURCE: JOINT FLSP ENTR: 11/22/[address] [facility] [address]: Iban Cardoza MD SPDESC: KNEE RIGHT Zen Smith M.D. ORDERED: AER/STEFFI CULTSMR COMMENTS: RIGHT PROXIMAL KNEE Procedure Result Verified Site GRAM STAIN Final 11/23/16 RESULT MANY WBCs SEEN NO ORGANISMS SEEN OR AER/STEFFI CULT Preliminary 11/25/16114 Organism 1 STAPHYLOCOCCUS AUREUS QUANITY FEW SENS SENSITIVITY TO FOLLOW Organism 2 PEPTOSTREPTOCOCCUS SPECIES QUANITY FEW SENS NO SENSITIVITY TO FOLLOW 1. STAPHYLOCOCCUS AUREUS Target Route Dose RX AB Cost M.I.C. IQ ------ ----- ------ -- ------ -------- - ------ TRIMET/SULFA S <=0.5/ 9.5 * OXACILLIN S <=0.25 VANCOMYCIN S 2 ERYTHROMYCIN S <=0.5 TETRACYCLINE S <=4 CLINDAMYCIN S <=0.5 DAPTOMYCIN S <=0.5 S = SENSITIVE I = INTERMEDIATE R = RESISTANT END OF REPORT Last 24 Hours Test 11/25/16 06:14 Creatinine 0.74 mg/dl Est Creatinine Clear Calc Drug Dose 92.8 ml/min Estimated GFR () 101.3 Estimated GFR (Non- 87.4 Assessment and Plan Infected right TKA now status post debridement and poly exchange. Cultures have grown methicillin sensitive Staph aureus. Given patient's penicillin allergy, would recommend the use of IV daptomycin which would allow for once daily dosing at home. Will need 6 weeks Rx.
[2016-11-26] MEDS ORDERED: VANCOMYCIN TROUGH ONE (11:30)
--- NOTE | 2016-11-29 10:00 | Discharge Summary ---
Orthopedic Discharge Summary Admission Date/Reason Nov 22, 2016 at 15:43 Post Op Infection. Discharge Date/Disposition Nov 25, 2016 Home with services Diagnosis Principal Diagnosis: S/P right knee irrigation and debridment, poly exchange Medication Reconciliation as per discharge instructions Admission Physical Exam As per Admitting History & Physical. Hospital Course POD #1 patient was feeling ok. Her pain was controlled with PO medications. We were pending cultures of her joint fluid at this time. POD#2 patient was feeling well and her pain was controlled with PO medication. Her cultures preliminary results came back as MSSA. It was discussed with ID that she would go home with at least 6 weeks of IV antibiotics. POD #3 she went home with PICC line and IV antibiotics Daptomycin. She will have home health come in to help with IV antibiotics and PT. Discharge Instructions Please refer to the electronic Patient Visit Report (Discharge Instructions) for additional information.
== END 2016-11-25 16:21 | disposition home health service (06) | DRG 464 ==
LOC: UNDOADMIN 15:43 → C.MSW 15:43
PROVIDERS: ADMIT Orthopaedic Surgery; ATTEND Orthopaedic Surgery
PROC: 0SUV09Z Supplement Right Knee Joint, Tibial Surface with Liner, Open Approach (ICD-10-PCS; principal; 2016-11-22 09:00)
PROC: 0SPV0JZ Removal of Synthetic Substitute from Right Knee Joint, Tibial Surface, Open Approach (ICD-10-PCS; principal; 2016-11-22 09:00)
PROC: 0SBC0ZZ Excision of Right Knee Joint, Open Approach (ICD-10-PCS; principal; 2016-11-22 09:00)
PROC: 05HB33Z Insertion of Infusion Device into Right Basilic Vein, Percutaneous Approach (ICD-10-PCS; 2016-11-23)
DX: T84.53XA Infection and inflammatory reaction due to internal right knee prosthesis, initial encounter (principal); L03.115 Cellulitis of right lower limb; B95.61 Methicillin susceptible Staphylococcus aureus infection as the cause of diseases classified elsewhere; Z96.651 Presence of right artificial knee joint; Y83.1 Surgical operation with implant of artificial internal device as the cause of abnormal reaction of the patient, or of later complication, without mention of misadventure at the time of the procedure; M19.90 Unspecified osteoarthritis, unspecified site; J44.9 Chronic obstructive pulmonary disease, unspecified; F17.200 Nicotine dependence, unspecified, uncomplicated; K21.9 Gastro-esophageal reflux disease without esophagitis; F41.9 Anxiety disorder, unspecified; Z79.82 Long term (current) use of aspirin; Z79.899 Other long term (current) drug therapy; Z88.0 Allergy status to penicillin; Z88.1 Allergy status to other antibiotic agents; Z82.3 Family history of stroke

== ENCOUNTER → 2017-02-04 | Outpatient (CLI) | payer BC ==
[~2017-02-04] MED LIST changes: +DAPT500I IV
[2017-02-04 13:15] LABS: BASO % 1.4 %; BASO ABS # 0.08 K/uL (0-0.2); COMPLETE YES; EOS % 7.2 %; HEMATOCRIT 43.6 % (37-47); IG% 0.2 %; LYMPH % 37.5 %; LYMPH ABS # 2.08 K/uL (1.2-3.4); MEAN CELL VOLUME 94.2 fL (80-100); MEAN CORPUSCULAR HEMOGLOBIN 29.4 pg (25-34); MEAN CORPUSCULAR HGB CONC 31.2 g/dl (32-36); MEAN PLATELET VOLUME 11.3 fL (7.4-10.4); MONO % 7.2 %; NEUT % 46.5 %; PLATELET COUNT 227 K/uL (130-400); RED BLOOD COUNT 4.63 M/uL (4.2-5.4); WHITE BLOOD COUNT 5.54 K/uL (4.8-10.8)
[2017-02-04 13:42] LABS: ALT/SGPT 18 U/L (12-78); AST/SGOT 11 U/L (15-37); BLOOD UREA NITROGEN 17 mg/dl (7-18); BUN/CREATININE RATIO 19.4 (10-20); CALCIUM 9.2 mg/dl (8.5-10.1); CARBON DIOXIDE 28 mmol/L (21-32); CHLORIDE 107 mmol/L (98-107); CREATININE 0.88 mg/dl (0.60-1.20); GLUCOSE 92 mg/dl (70-99); POTASSIUM 4.5 mmol/L (3.5-5.1); SODIUM 141 mmol/L (136-145)
[2017-02-04 13:45] LABS: ALB/GLOB RATIO 0.9 (0.9-2); ALKALINE PHOSPHATASE 98 U/L (45-117); C-REACTIVE PROTEIN 0.57 mg/dl (0-0.29)
== END | disposition home or self-care (01) ==
LOC: C.LAB1850 11:47
PROVIDERS: ATTEND Internal Medicine Infectious Disease
DX: T84.53XA Infection and inflammatory reaction due to internal right knee prosthesis, initial encounter (principal); Y83.1 Surgical operation with implant of artificial internal device as the cause of abnormal reaction of the patient, or of later complication, without mention of misadventure at the time of the procedure

== ENCOUNTER → 2017-11-18 | Outpatient (CLI) | payer BC ==
[~2017-11-18] MED LIST changes: -ASPEC81 PO; +ASPI-320 PO; -ONDA8TAB6 PO
== END | disposition home or self-care (01) ==
LOC: C.LABSPEC 13:25
PROVIDERS: ATTEND Physical Medicine & Rehabilitation Sports Medicine
DX: M25.561 Pain in right knee (principal); Z87.39 Personal history of other diseases of the musculoskeletal system and connective tissue